=== PATIENT | male | born 1955 | race Caucasian/White ===

== ENCOUNTER 2020-09-16 12:23 | Emergency (ER) | payer SELFPAY ==
--- NOTE | 2020-09-16 12:25 | XR_ITS ---
WS: [id number] Exam: XR chest 1V portable [id number] Date/Time of Exam: 09/16/2020 12:25 PM Reason For Exam: chest pain No priors. Findings: The lungs are clear and fully expanded. Costophrenic angles are sharp. No infiltrates. Bronchovascula r relief appears normal. Cardiac silhouette is unremarkable. Bony elements are intact. XR/XR chest 1V portable [id number] IMPRESSION: Unremarkable chest radiograph.
--- NOTE | 2020-09-16 12:25 | ECG_ITS ---
[facility] Test Date: 2020-09-16 Pat Name: Kiersten Sibley Department: Room: Gender: Male Security Assistant: : 1955 Requested By: Diego Davison Order Number: [id number] Slick MD: Jocelyne Carrillo M.D. Measurements Intervals [place] Rate: 69 P: 51 MD: 152 QRS: 37 QRSD: 90 T: 58 QT: 360 QTc: 387 Interpretive Statements SINUS RHYTHM Compared to ECG 01/01/2018 11:02:17 ST (T wave) deviation no longer present Electronically Signed On 09-16-2020 15:40:42 CDT by Jocelyne Carrillo M.D. [id number] f
[2020-09-16 12:31] VITALS: BP 177/84; PULSE 68; RESP 15; TEMP 36.6; O2SAT 98; BMI 29.8
--- NOTE | 2020-09-16 12:56 | ED_ITS ---
HPI - Chest Pain General: Chief Complaint: Chest Pain Stated Complaint: CHEST PAINS Time Seen by Provider: 09/16/20 12:24 History of Present Illness: HPI narrative: 65-year-old male presents emergency room with complaint of chest pain. The chest pain for the last 3 days is worse today he does have a single sublingual nitro at home he took 3 with no relief. He states it began after he was throwing rocks at his neighbors chickens. He has not really been able to reproduce the pain he does have pain that seems musculoskeletal in nature in his right shoulder but states that is different he is not currently having any pain at the moment. He does not associate it with any exacerbating or relieving factors. MD complaint: chest pain Onset (ago): minute(s) Timing of current episode: episodic Onset: during rest Pain location: substernal Pain radiation: none Severity: mild Quality: aching and heaviness Relieving factors: nothing Exacerbating factors: nothing Associated symptoms: Deny abdominal pain, diaphoresis, dyspnea, fever(s), leg edema, nausea, palpitations, sense of impending doom, syncope or vomiting Treatment prior to arrival: none Review of Systems Const: Denies: fever(s) or diaphoresis ENMT: Denies: throat pain, ear or mastoid pain, nasal discharge or nasal congestion Card: Denies: palpitations or syncope Resp: Denies: dyspnea GI: Denies: abdominal pain, nausea or vomiting : Denies: flank pain, dysuria, urinary frequency or urinary urgency Skin/Breast: Denies: rash or pruritus [facility] ED PFSH: Medical History Coronary artery disease HTN (hypertension) Hyperlipidemia Social History Smoking and tobacco status: current every day smoker cigarettes Packs smoked per day: 1 Years cigarettes smoked: 10 Quit status (tobacco): not considering quitting Second hand smoke exposure: Yes Alcohol intake: never Physical Exam Const: COMMON NORMALS: no acute distress GENERAL APPEARANCE: cooperative and comfortable ORIENTATION/CONSCIOUSNESS: Yes awake, Yes oriented to person, Yes oriented to place and Yes oriented to time HENMT: COMMON NORMALS: normocephalic, atraumatic and hearing grossly normal bilaterally HEAD & SCALP: normocephalic and atraumatic Neck/C-Spine: COMMON NORMALS: no JVD Resp: COMMON NORMALS: normal respiratory effort, No retractions, No use of accessory muscles and clear to auscultation bilaterally AUSCULTATION: clear to auscultation bilaterally Cardio: COMMON NORMALS: no JVD, regular rate, regular rhythm and No murmurs present (Cardio) RATE: regular rate RHYTHM: regular rhythm GI: COMMON NORMALS: Soft to palpation and No hepatosplenomegaly present AUSCULTATION: Yes normoactive bowel sounds PALPATION: Yes Soft to palpation, No Tenderness to palpation present (GI), No Guarding due to palpation present (GI) and Yes No hepatosplenomegaly present Extremity: COMMON NORMALS: normal to inspection, capillary refill normal, no clubbing, cyanosis or edema, no calf tenderness and no pedal edema Neuro: SENSORIUM/ORIENTATION: Yes oriented to person, Yes oriented to place and Yes oriented to time Skin: COMMON NORMALS: no rashes or lesions noted GENERAL SKIN EXAM: no rashes or lesions noted Course Vital Signs: Vital signs: Vital Signs Temperature 97.9 F 09/16/20 12:31 Pulse Rate 62 09/16/20 17:51 Respiratory Rate 18 09/16/20 17:51 Blood Pressure 152/83 09/16/20 17:51 Pulse Oximetry 97 09/16/20 17:51 MDM - Chest Pain MDM Narrative: Medical decision making narrative: She has had this pain for 3 days intermittently despite this is troponin is negative and is EKG is unremarkable. Will discharge home however start on [id number] Pepcid or Prilosec continue aspirin start arrival isosorbide mononitrate for his blood pressure we will get him set up for a Lexiscan sestamibi stress test. Recommend he will hold off on any exertional activities until that is completed return if has further problems. Lab Data: Labs: Lab Results 09/16/20 09/16/20 09/16/20 Range/Units 13:20 13:20 13:20 WBC 7.7 (4.0-10.0) 10^3/ uL RBC 4.52 (4.1-5.3) 10^6/u L Hgb 13.5 (11.7-16.6) g/dL Hct 40.8 L (42.0-52.0) % MCV 90.3 (80-94) fL MCH 29.9 (28.0-34.0) pg MCHC 33.1 (30.0-36.0) g/dL RDW 13.5 (12.1-15.1) % Plt Count 302 (130-400) 10^3/c mm MPV 10.7 H (7.4-10.4) fL Neut % (Auto) 50.6 % Lymph % (Auto) 33.1 % [place] % (Auto) 9.5 % Eos % (Auto) 6.0 % Baso % (Auto) 0.7 % Neut # (Auto) 3.87 (1.8-7.7) 10^3/u L Lymph # (Auto) 2.5 (0.8-4.8) 10^3/u L [place] # (Auto) 0.7 (0.2-0.9) 10^3/u L Eos # (Auto) 0.5 (0.0-0.8) 10^3/u L Baso # (Auto) 0.1 (0.0-0.1) 10^3/u L Nucleated RBC % (a uto) 0 % Nucleated RBCs # 0.0 /100WBC Sodium 136 (136-145) mmol/L Potassium 4.4 (3.5-5.1) mmol/L Chloride 102 (98-107) mmol/L Carbon Dioxide 24 (22-29) mmol/L Anion Gap 14.4 (5-19) BUN 6 L (8-23) mg/dL Creatinine 0.5 L (0.7-1.2) mg/dL GFR Calculation 167.4 H (90-130) mL/min Glucose 72 (65-115) mg/dL Calculated Osmolal ity 278 L (285-295) mOsm/k g Calcium 9.0 (8.5-10.5) mg/dL Total Bilirubin 0.3 (0.15-1.2) mg/dL AST 14 (0-40) U/L ALT 11 (0-41) U/L Alkaline Phosphata se 91 (40-130) IU/L Troponin T Baselin e 6 (0-15) ng/L Troponin T 120 Min [place] (0-15) ng/L Delta Troponin T (0-10) ABS# Total Protein 6.1 L (6.6-8.7) g/dL Albumin 4.5 (3.5-5.2) g/dL Globulin 1.6 (1.3-4.6) g/dL 09/16/20 Range/Units 15:18 WBC (4.0-10.0) 10^3/ uL RBC (4.1-5.3) 10^6/u L Hgb (11.7-16.6) g/dL Hct (42.0-52.0) % MCV (80-94) fL MCH (28.0-34.0) pg MCHC (30.0-36.0) g/dL RDW (12.1-15.1) % Plt Count (130-400) 10^3/c mm MPV (7.4-10.4) fL Neut % (Auto) % Lymph % (Auto) % [place] % (Auto) % Eos % (Auto) % Baso % (Auto) % Neut # (Auto) (1.8-7.7) 10^3/u L Lymph # (Auto) (0.8-4.8) 10^3/u L [place] # (Auto) (0.2-0.9) 10^3/u L Eos # (Auto) (0.0-0.8) 10^3/u L Baso # (Auto) (0.0-0.1) 10^3/u L Nucleated RBC % (a uto) % Nucleated RBCs # /100WBC Sodium (136-145) mmol/L Potassium (3.5-5.1) mmol/L Chloride (98-107) mmol/L Carbon Dioxide (22-29) mmol/L Anion Gap (5-19) BUN (8-23) mg/dL Creatinine (0.7-1.2) mg/dL GFR Calculation (90-130) mL/min Glucose (65-115) mg/dL Calculated Osmolal ity (285-295) mOsm/k g Calcium (8.5-10.5) mg/dL Total Bilirubin (0.15-1.2) mg/dL AST (0-40) U/L ALT (0-41) U/L Alkaline Phosphata se (40-130) IU/L Troponin T Baselin e (0-15) ng/L Troponin T 120 Min [place] 6.00 (0-15) ng/L Delta Troponin T 0 (0-10) ABS# Total Protein (6.6-8.7) g/dL Albumin (3.5-5.2) g/dL Globulin (1.3-4.6) g/dL Discharge Plan Discharge Patient Disposition: Home Clinical Impression: Atypical chest pain, HTN (hypertension) Condition: Stable Prescriptions: New isosorbide mononitrate 30 mg tablet extended release 24 hr 30 mg PO DAILY Qty: 30 RF: 0 No Action aspirin [Ecotrin] 325 mg tablet,delayed release (DR/EC) 325 mg PO BEDTIME RF: 0 nitroglycerin 0.4 mg tablet, sublingual 0.4 mg sublingual Q5M PRN (Reason: chest pain) Qty: 25 RF: 1 paroxetine HCl 20 mg tablet 40 mg PO QAM RF: 0 Discharge Orders: Discharge ED (Routine); Ordered 09/16/20 Ordered By: Diego Chavez Discharge Diet: Cardiac Discharge Activity: Limit activity as instructed Patient Instructions: Opioid Safety Activity Restrictions/Additional Instructions: Management will call to make arrangements for a Lexiscan sestamibi stress test Coding Level of Care Code ED Senior Windows Engineer for Chg Fwd Exam Comprehensive
[2020-09-16 13:31] VITALS: BP 158/72; PULSE 64; RESP 20; O2SAT 96
[2020-09-16 13:31] LABS: Basophils # 0.1 10^3/uL (0.0-0.1); Basophils % 0.7 %; Eosinophils # 0.5 10^3/uL (0.0-0.8); Hematocrit 40.8 % (42.0-52.0); Hemoglobin 13.5 g/dL (11.7-16.6); Lymphocytes # 2.5 10^3/uL (0.8-4.8); Lymphocytes % 33.1 %; Mean Corpuscular HGB Conc 33.1 g/dL (30.0-36.0); Mean Corpuscular Hemoglobin 29.9 pg (28.0-34.0); Mean Corpuscular Volume 90.3 fL (80-94); Mean Platelet Volume 10.7 fL (7.4-10.4); Monocytes # 0.7 10^3/uL (0.2-0.9); Monocytes % 9.5 %; Neutrophils # 3.87 10^3/uL (1.8-7.7); Neutrophils % 50.6 %; Nucleated Red Blood Cells % 0 %; Platelet Count 302 10^3/cmm (130-400); Red Blood Count 4.52 10^6/uL (4.1-5.3); Red Cell Distribution Width 13.5 % (12.1-15.1); White Blood Count 7.7 10^3/uL (4.0-10.0)
[2020-09-16 13:55] LABS: Alanine Aminotransferase 11 U/L (0-41); Albumin Level 4.5 g/dL (3.5-5.2); Alkaline Phosphatase 91 IU/L (40-130); Anion Gap 14.4 (5-19); Aspartate Amino Transferase 14 U/L (0-40); Blood Urea Nitrogen 6 mg/dL (8-23); Carbon Dioxide 24 mmol/L (22-29); Chloride 102 mmol/L (98-107); Globulin 1.6 g/dL (1.3-4.6); Glomerular Filtration Rate 167.4 mL/min (90-130); Glucose 72 mg/dL (65-115); Osmolality Calculated 278 mOsm/kg (285-295); Potassium 4.4 mmol/L (3.5-5.1); Sodium 136 mmol/L (136-145); Total Bilirubin 0.3 mg/dL (0.15-1.2); Total Protein 6.1 g/dL (6.6-8.7)
[2020-09-16 13:56] LABS: Creatinine Clr Calc Pharmacy 151.6749
[2020-09-16 14:00] LABS: Troponin(5th) Baseline 6 ng/L (0-15)
--- NOTE | 2020-09-16 14:25 | ECG_ITS ---
[facility] Test Date: 2020-09-16 Pat Name: Kiersten Sibley Department: Room: Gender: Male Criminal Justice Lawyer: : 1955 Requested By: Diego Davison Order Number: [id number] Slick MD: Jocelyne Carrillo M.D. Measurements Intervals [place] Rate: 62 P: 46 [place]: 164 QRS: 27 QRSD: 87 T: 62 QT: 385 QTc: 392 Interpretive Statements SINUS RHYTHM Compared to ECG 09/16/2020 12:30:15 No significant changes Electronically Signed On 09-16-2020 18:32:48 CDT by Jocelyne Carrillo M.D. [id number]
[2020-09-16 15:23] VITALS: BP 152/83; PULSE 62; RESP 15; O2SAT 97
[2020-09-16 15:47] LABS: Troponin 5 2HR Delta 0 ABS# (0-10)
[2020-09-16 17:51] VITALS: BP 152/83; PULSE 62; RESP 18; O2SAT 97
== END 2020-09-16 17:53 | disposition home or self-care (01) ==
PROVIDERS: Emergency Provider Family Medicine
DX: R07.89 Other chest pain (principal); I10 Essential (primary) hypertension; Z79.82 Long term (current) use of aspirin; I25.10 Atherosclerotic heart disease of native coronary artery without angina pectoris; E78.5 Hyperlipidemia, unspecified; F17.210 Nicotine dependence, cigarettes, uncomplicated
CPT/HCPCS: 71045; 80053; 84484; 85025; 93005; 99284

== ENCOUNTER 2020-11-04 07:29 | Outpatient (CLI) | payer SELFPAY ==
[2020-11-04 07:55] VITALS: BMI 29.0
--- NOTE | 2020-11-04 07:58 | ECG_ITS ---
[facility] Test Date: 2020-11-04 Pat Name: Kiersten Sibley Department: Room: Gender: Male Air Pollution Inspector: : 1955 Requested By: Renita Ball Order Number: [id number] Slick MD: Jocelyne Carrillo M.D. Interpretive Statements NAME OF STUDY: LEXISCAN SESTAMIBI STRESS TEST INDICATION: Chest Pain PROCEDURE: At the baseline, the blood pressure was 184/80 mmHg, oxygen saturation 96% with a heart rate of 51 bpm. The electrocardiogram showed sinus bradycardia with nonspecific ST depression. The Lexiscan was infused over a period of 20 seconds. A total of 0.4 milligrams of Lexiscan was infused. The stress phase was continued for a total of 5 minutes. Heart rate at the end of the stress phase was 68 bpm, oxygen saturation 98% with a blood pressure of 179/68 mmHg. The EKG at the peak infusion revealed sinus rhythm with no significant ST-T wave changes. Study was terminated due to protocol completion. Sestamibi was injected 20 seconds after the Lexiscan infusion. Blood pressure at the end of the recovery phase was 172/71 mmHg, oxygen saturation 95% with a heart rate of 59 beats per minute. CONCLUSION: 1. No significant EKG changes with the LexiScan infusion 2. No LexiScan induced chest pain or cardiac arrhythmia. 3. Normal blood pressure and heart rate response. 4. Sestamibi/sestamibi perfusion scan pending; see separate report. Electronically Signed On 11-05-2020 12:20:12 CDT by Jocelyne Carrillo M.D. [email or web address] [email or web address]/[id number]
--- NOTE | 2020-11-04 07:59 | NMCV_ITS ---
NM julio perf SPECT r/s* [id number] Kiersten Sibley Age: 65 Gender: M : 1955 Exam Date: 11/04/2020 09:03 Ordering Phys: Renita Ball Technologist: MARQUIS Ibrahim Exam Location: [facility] Indications: CAD STRESS TEST Please see separate stress test report in [facility] for full findings IMAGE PROTOCOL Rest/Stress 1 Lexiscan Day Radiopharmaceutical Dose (mCi) Administration Site Administered by Rest: Tc-99m 10.9 IV Radha Baird, DIRECTOR BUSINESS INTELLIGENCE Sestamibi Stress:Tc-99m 32.8 IV Radha Baird, DIRECTOR BUSINESS INTELLIGENCE Sestamibi Rest: 04-Nov-2020 60 Discovery 630 Stress: 04-Nov-2020 30 Discovery 630 0.4mg Lexiscan. Images obtained in supine and prone position. SPECT RESULTS Technical Quality: Excellent Raw Data Analysis: Normal Image Corrections: No attenuation or motion correction applied Summed Stress Score: 2 Summed Rest Score: 1 Summed Difference Score: 2 PERFUSION FINDINGS Very small size perfusion abnormality of mild severity of mid inferolateral wall on rest images with subtle reversibility in apical lateral wall on supine stress images. There is improved tracer uptake on prone stress images. FUNCTIONAL RESULTS (calculated via Gated SPECT) Stress Image LV EF (%): 71 Stress EDV (mL):104 TID: 0.87 Stress ESV (mL):30 FUNCTIONAL FINDINGS: The left ventricle is normal in size. Transient Ischemia Dilatation of 0.87. There is normal left ventricular systolic function. The left ventricular ejection fraction is normal with a value of 71%. There is normal left ventricular wall thickening with no regional wall motion abnormality. Normal end-diastolic end-systolic volumes. IMPRESSIONS 1. Myocardial perfusion imaging is normal. Attenuation artifact noted in apical lateral wall. 2. Overall left ventricular systolic function is normal without regional wall motion abnormalities. 3. The left ventricular ejection fraction is normal with a value of 71%. 4. EKG portion of the study will be reported separately. 5. No coronary ischemia based on the study. Jocelyne Carrillo MD (Electronically Signed) Final Date: 05 November 2020 12:29 S
[2020-11-04] MEDS: regadenoson 0.4 Mg/5 ml Syringe IVP (10:17)
[2020-11-04 10:45] VITALS: BP 155/64; PULSE 83
== END 2020-11-04 07:30 | disposition home or self-care (01) ==
LOC: CDL 07:34
PROVIDERS: Visit Provider Nurse Practitioner Family
DX: R07.9 Chest pain, unspecified (principal)
CPT/HCPCS: 78452; 93017; A9500; J2785

== ENCOUNTER → 2021-04-26 09:36 | Outpatient (BNVA) | payer MEDICARE, SELFPAY | PROVIDERS: Visit Provider Nurse Practitioner Psychiatric/Mental Health | DX: F41.1 Generalized anxiety disorder (principal) | CPT/HCPCS: 99213 ==

== ENCOUNTER → 2021-05-18 12:26 | Outpatient (BNVA) | payer MEDICARE, SELFPAY | PROVIDERS: Visit Provider Social Worker | DX: F41.1 Generalized anxiety disorder (principal) | CPT/HCPCS: 90837; 90834 ==

== ENCOUNTER → 2021-06-29 08:25 | Outpatient (BNVA) | payer MEDICARE, SELFPAY | PROVIDERS: Visit Provider Social Worker | DX: F41.1 Generalized anxiety disorder (principal) | CPT/HCPCS: 90837; 90834 ==

== ENCOUNTER → 2021-07-19 10:46 | Outpatient (BNVA) | payer MEDICARE, SELFPAY | PROVIDERS: Visit Provider Nurse Practitioner Psychiatric/Mental Health | DX: F41.1 Generalized anxiety disorder (principal) | CPT/HCPCS: 99213; 99214 ==

== ENCOUNTER → 2021-08-01 12:13 | Outpatient (BNVA) | payer MEDICARE, SELFPAY | PROVIDERS: Visit Provider Social Worker | DX: F41.1 Generalized anxiety disorder (principal) | CPT/HCPCS: 90837; 90834 ==

== ENCOUNTER → 2021-08-22 12:15 | Outpatient (BNVA) | payer MEDICARE, SELFPAY | PROVIDERS: Visit Provider Social Worker | DX: F41.1 Generalized anxiety disorder (principal) | CPT/HCPCS: 90837; 90834 ==

== ENCOUNTER → 2021-09-16 11:20 | Outpatient (BNVA) | payer MEDICARE, SELFPAY | PROVIDERS: Visit Provider Social Worker | DX: F41.1 Generalized anxiety disorder (principal) | CPT/HCPCS: 90837; 90834 ==

== ENCOUNTER 2024-02-08 18:14 | Inpatient (IN) | payer MEDICARE, SELFPAY ==
[2024-02-08 18:23] VITALS: BP 135/74; PULSE 76; RESP 17; TEMP 36.5; O2SAT 98; BMI 27.4
--- NOTE | 2024-02-08 18:38 | ECG_ITS ---
[facility] Date: 2024-[facility]-08 Pat Name: Kiertsen Sibley Department: Room: Gender: Male Multimedia Project Manager: : 1955 Requested By: Abram Higgins Order Number: [id number] Reading MD: URIAH FRAIRE Measurements Intervals [place] Rate: 78 P: 62 NM: 162 QRS: 54 QRSD: 85 T: 56 QT: 359 QTc: 409 Interpretive Statements SINUS RHYTHM MODERATE ST DEPRESSION [0.05+ mV ST DEPRESSION] Compared to ECG 09/16/2020 14:55:01 ST (T wave) deviation now present Electronically Signed On 02-09-2024 18:08:40 CDT by URIAH FARIRE [id number] f
--- NOTE | 2024-02-08 18:38 | XRR_ITS ---
PROCEDURE INFORMATION: Exam: XR Chest Exam date and time: 02/08/2024 6:55 PM Age: 68 years old Clinical indication: Pain; Chest pressure; Additional info: Chest pain TECHNIQUE: Imaging protocol: Radiologic exam of the chest. Views: 1 view. COMPARISON: CR XR chest 1V portable [id number] 09/16/2020 12:36 PM FINDINGS: Lungs: Stable mild interstitial prominence. No pulmonary consolidation. Pleural spaces: No pleural effusion or pneumothorax. Heart/Mediastinum: Heart size is within normal limits. Bones/joints: No acute osseous abnormalities are seen. XR/XR chest 1V portable [id number] IMPRESSION: No acute cardiopulmonary disease.
[2024-02-08 18:49] LABS: Basophils # 0.1 10^3/uL (0.0-0.1); Basophils % 0.7 %; Eosinophils # 0.7 10^3/uL (0.0-0.8); Eosinophils % 5.4 %; Hematocrit 43.9 % (37-53); Lymphocytes % 32.2 %; Mean Corpuscular HGB Conc 34.2 g/dL (30-55); Mean Corpuscular Hemoglobin 31.8 pg (27-33); Mean Platelet Volume 11.5 fL (7.4-10.4); Monocytes % 7.8 %; Neutrophils % 53.7 %; Nucleated Red Blood Cells % 0 %; Platelet Count 300 10^3/cmm (157-399); Red Blood Count 4.72 10^6/uL (3.85-5.65); Red Cell Distribution Width 13.5 % (12.1-15.1); White Blood Count 12.49 10^3/uL (3.29-11.43)
[2024-02-08] MEDS: ondansetron 2 mg/ML SDV 2 mL 4 MG IVP (19:03)
[2024-02-08] MEDS: morphine 4 mg/mL SDV 1 mL IVP (19:03)
[2024-02-08 19:06] LABS: INR 0.87 (0.8-1.2); Partial Thromboplastin Time 23.6 SECONDS (23.9-36.7)
[2024-02-08 19:07] LABS: Troponin(5th) Baseline 12 ng/L (0-15)
[2024-02-08 19:09] LABS: Anion Gap 16.8 (5-19); Blood Urea Nitrogen 10 mg/dL (8-23); Calcium 9.5 mg/dL (8.5-10.5); Carbon Dioxide 23 mmol/L (22-29); Chloride 98 mmol/L (98-107); Creatinine Clr Calc Pharmacy 77.8716; Glomerular Filtration Rate 84.2 mL/min (90-130); Glucose 78 mg/dL (65-115); Osmolality Calculated 276 mOsm/kg (285-295); Potassium 3.8 mmol/L (3.5-5.1); Sodium 134 mmol/L (136-145)
[2024-02-08 19:12] LABS: NT Pro B Type Natriuretic Pept 125 pg/mL (0-125)
[2024-02-08] MEDS: lidocaine 2% viscous 15 ML, aluminum-mag hydrox-simethicon 30 ML, sucralfate oral liq 1 GM PO (19:43)
--- NOTE | 2024-02-08 20:38 | ECG_ITS ---
[facility] Test Date: 2024-02-08 Pat Name: Kiersten Sibley Department: Room: Gender: Male Insurance Follow Up Rep: : 1955 Requested By: Abram Higgins Order Number: [id number] Reading MD: URIAH FRAIRE Measurements Intervals [place] Rate: 62 P: 71 ND: 170 QRS: 72 QRSD: 85 T: 58 QT: 403 QTc: 411 Interpretive Statements SINUS RHYTHM MODERATE ST DEPRESSION [0.05+ mV ST DEPRESSION] Compared to ECG 02/08/2024 18:19:35 No significant changes Electronically Signed On 02-09-2024 18:14:49 CDT by URIAH FRAIRE [id number]
[2024-02-08 20:41] VITALS: BP 140/72; PULSE 61; RESP 16; O2SAT 96
[2024-02-08 20:49] LABS: Troponin 5 2HR 13.73 ng/L (0-15); Troponin 5 2HR Delta 1.73 ABS# (0-10)
--- NOTE | 2024-02-08 21:11 | ED_ITS ---
HPI - Chest Pain 2 General: Chief Complaint: Chest Pain Stated Complaint: CP Time Seen by Provider: 02/08/24 18:18 History of Present Illness: This patient is a 68-year-old white male who presents to the emergency department with chest pain. Patient states he was out cutting wood today and then started gathering the wood and developed chest pressure. This came on 1 hour prior to arrival here. He did take 1 sublingual nitroglycerin tablet with no relief. He was brought in by EMS. They did give him 2 sublingual nitroglycerin tablets which did help with his pain. He continues to have some moderate pain he rates a 5 on a scale of 1-10. Describes it as a pressure sensation. Has some mild shortness of breath. No nausea or vomiting. No radiation of the pain. No diaphoresis. He does have a history of coronary artery disease and had 1 stent placed in 2001. Patient was also given aspirin and route. Patient does smoke. Related Data Home Medications Medication Instructions Recorded Confirmed aspirin 325 mg tablet,delayed 325 mg PO BEDTIME 05/27/19 12/14/22 release (Ecotrin) Previous Rx's Medication Instructions Recorded nitroglycerin 0.4 mg sublingual 0.4 mg sublingual Q5M PRN chest 07/19/21 tablet pain #25 tabs paroxetine HCl 20 mg tablet 40 mg (2 x 20 mg) PO QAM #60 tabs 04/05/23 Allergies Allergy/AdvReac Type Severity Reaction Status Date / Time No Known Allergies Allergy Verified 12/14/22 11:19 Review of Systems 2 General: Reports: 10 or more systems reviewed and unremarkable except in HPI and below Card: Reports: chest pain [facility] ED 2 PFSH: Medical History (Updated 01/18/24 @ 08:17 by Amy Andre) Coronary artery disease Hyperlipidemia HTN (hypertension) Social History Smoking and tobacco/nicotine status: current every day tobacco/nicotine user cigarettes Packs smoked per day: 1 Years cigarettes smoked: 10 Second hand smoke exposure: Yes Alcohol intake: never Substance/Drug Use: never Physical Exam 2 Const: COMMON NORMALS: no acute distress, patient oriented x3 and no limitations GENERAL APPEARANCE: cooperative and comfortable HENMT: COMMON NORMALS: normocephalic, atraumatic, Normal nasal mucous membranes and turbinates present, moist oral mucous membranes and oropharynx normal HEAD & SCALP: normal to inspection, normocephalic and atraumatic F SCOTTY & SINUS: normal facial exam NOSE: Normal nasal mucous membranes and turbinates present Eye: COMMON NORMALS: Equal, round and reactive pupils present, EOMs intact bilaterally and conjunctivae normal GENERAL EYE: appearance normal, both eyes and all related structures CONJUNCTIVA: Yes conjunctivae normal PUPIL: Yes Equal, round and reactive pupils present Neck/C-Spine: COMMON NORMALS: supple and no JVD Chest: COMMONS NORMALS: normal inspection of the chest Resp: COMMON NORMALS: normal respiratory effort and clear to auscultation bilaterally AUSCULTATION: clear to auscultation bilaterally Cardio: COMMON NORMALS: no JVD, regular rate, regular rhythm, No gallops present (Cardio), No murmurs present (Cardio) and No rub (Cardio) RATE: r egular rate RHYTHM: regular rhythm GI: COMMON NORMALS: Normal to inspection, nondistended, normoactive bowel sounds present, Soft to palpation and non-tender AUSCULTATION: Yes normoactive bowel sounds PALPATION: Yes Soft to palpation : COMMON NORMALS: Yes no CVA tenderness BLADDER/KIDNEY EXAM: Yes no CVA tenderness Back/Pelvis: COMMON NORMALS: no CVA tenderness and thoracic and lumbar spine normal to inspection Extremity: COMMON NORMALS: normal to inspection Neuro: COMMON NORMALS: patient oriented x3 and CN's II-XII intact bilaterally Psych: COMMON NORMALS: mental status grossly normal, Normal thought process present and cooperative THOUGHT PROCESS: Normal thought process present Skin: COMMON NORMALS: no rashes or lesions noted, turgor normal and no jaundice GENERAL SKIN EXAM: no rashes or lesions noted and turgor normal Course 2 Vital Signs: Vital signs: Vital Signs Temperature 97.7 F 02/08/24 18:23 Pulse Rate 61 02/08/24 20:41 Respiratory Rate 16 02/08/24 20:41 Blood Pressure 140/72 02/08/24 20:41 Pulse Oximetry 96 02/08/24 20:41 Oxygen Delivery Me thod Room Air 02/08/24 20:41 MDM - Chest Pain Medical Decision Making Patient was given 4 mg of morphine in the emergency department along with 4 mg of Zofran. Pain diminished to a level of 1 or 2. We also tried a GI cocktail which she states may have helped a little. Continues to have a very low level of chest pressure. His EKG revealed normal sinus rhythm with no ST segment abnormalities. His chest x-ray was normal. CBC reveals white blood cell count of 12.5. BMP was normal. BNP was 125. Baseline troponin was 12 with a 2-hour level of 13. Coags were normal. I discussed the case with patient's brine maker Dr. Davenport. He does recommend that we admit the patient to the hospitalist service and he will consult. I then discussed the case with Dr. Mckeon, hospitalist. He did accept the patient. He would like the patient admitted to the cardiac stepdown unit. Patient will be sent to the floor shortly. He is stable. Lab Data 02/08/24 18:15 02/08/24 18:15 Radiology Impressions Chest X-Ray 02/08/24 18:38 IMPRESSION: No acute cardiopulmonary disease. Laboratory Results WBC 12.49 10^3/uL (3.29-11.43) H 02/08/24 18:15 RBC 4.72 10^6/uL (3.85-5.65) 02/08/24 18:15 Hgb 15.00 g/dL (11.27-16.99) 02/08/24 18:15 Hct 43.9 % (37-53) 02/08/24 18:15 MCV 93.0 fl (82-101) 02/08/24 18:15 MCH 31.8 pg (27-33) 02/08/24 18:15 MCHC 34.2 g/dL (30-55) 02/08/24 18:15 RDW 13.5 % (12.1-15.1) 02/08/24 18:15 Plt Count 300 10^3/cmm (157-399) 02/08/24 18:15 MPV 11.5 fL (7.4-10.4) H 02/08/24 18:15 Neut % (Auto) 53.7 % 02/08/24 18:15 Lymph % (Auto) 32.2 % 02/08/24 18:15 [place] % (Auto) 7.8 % 02/08/24 18:15 Eos % (Auto) 5.4 % 02/08/24 18:15 Baso % (Auto) 0.7 % 02/08/24 18:15 Neut # (Auto) 6.70 10^3/uL (1.8-7.7) 02/08/24 18:15 Lymph # (Auto) 4.0 10^3/uL (0.8-4.8) 02/08/24 18:15 [place] # (Auto) 1.0 10^3/uL (0.2-0.9) H 02/08/24 18:15 Eos # (Auto) 0.7 10^3/uL (0.0-0.8) 02/08/24 18:15 Baso # (Auto) 0.1 10^3/uL (0.0-0.1) 02/08/24 18:15 Nucleated RBC % (auto) 0 % 02/08/24 18:15 Nucleated RBCs # 0.0 /100WBC 02/08/24 18:15 PT 12.10 SECONDS (12.1-14.9) 02/08/24 18:51 INR 0.87 (0.8-1.2) 02/08/24 18:51 APTT 23.6 SECONDS (23.9-36.7) L 02/08/24 18:51 Sodium 134 mmol/L (136-145) L 02/08/24 18:15 Potassium 3.8 mmol/L (3.5-5.1) 02/08/24 18:15 Chloride 98 mmol/L (98-107) 02/08/24 18:15 Carbon Dioxide 23 mmol/L (22-29) 02/08/24 18:15 Anion Gap 16.8 (5-19) 02/08/24 18:15 BUN 10 mg/dL (8-23) 02/08/24 18:15 Creatinine 0.9 mg/dL (0.7-1.2) 02/08/24 18:15 GFR Calculation 84.2 mL/min (90-130) L 02/08/24 18:15 Glucose 78 mg/dL (65-115) 02/08/24 18:15 Calculated Osmolality 276 mOsm/kg (285-295) L 02/08/24 18:15 Calcium 9.5 mg/dL (8.5-10.5) 02/08/24 18:15 Troponin T Baseline 12 ng/L (0-15) 02/08/24 18:15 Troponin T 120 Minute 13.73 ng/L (0-15) 02/08/24 20:18 Delta Troponin T 1.73 ABS# (0-10) 02/08/24 20:18 NT-Pro-B Natriuret Pep 125 pg/mL (0-125) 02/08/24 18:15 All radiology interpretation(s) finalized by discharge Discharge Plan Discharge Condition: Stable Prescriptions: No Action aspirin [Ecotrin] 325 mg tablet,delayed release (DR/EC) 325 mg PO BEDTIME nitroglycerin 0.4 mg tablet, sublingual 0.4 mg sublingual Q5M PRN (Reason: chest pain) Qty: 25 1RF Rx Instructions: do not exceed 3 doses per episode paroxetine HCl 20 mg tablet 40 mg PO QAM Qty: 60 1RF Rx Instructions: Take two tablets by mouth every morning Coding Level of Care Code ED Store Facility Technician for Ayleen Leonardo
[2024-02-08] MEDS: heparin 5,000 unit/mL INJ 1 mL 4000 UNIT IVP (21:58)
[2024-02-08] MEDS: heparin drip 25,000 UNIT/500 ML PREMIX 21.59 UNIT IV (22:27)
--- NOTE | 2024-02-08 22:36 | PC.NURSE ---
Report called to Renetta CHARLES in CSU. All questions/concerns addressed at this time.
[2024-02-08 22:37] VITALS: BP 130/64; PULSE 56; RESP 12; O2SAT 99
[2024-02-08 23:24] VITALS: BP 169/87; PULSE 79; O2SAT 98
[2024-02-08 23:28] VITALS: BMI 24.1
[2024-02-09] VITALS (17 sets, daily range): BP systolic 116–146; BP diastolic 50–64; PULSE 51–61; RESP 12–20; TEMP 36.6–36.9; O2SAT 92–97; BMI 27.1
[2024-02-09 00:53] LABS: Troponin 5 6HR 12.72 ng/L (0-15); Troponin 5 6HR Delta 0.72 ng/L (0-12)
--- NOTE | 2024-02-09 01:27 | USCV_ITS ---
Kiersten Sibley Age: 68 Gender: M : 1955 Exam Date: 02/09/2024 08:26 Ordering Phys: Mamta Barboza MD Technologist: Jose Moy Exam Location: [facility] [place] Indication: angina BP: 135 / 64 HR: 52 Rhythm: Sinus Technical Quality: Adequate MEASUREMENTS (Male / Female) Normal Values 2D ECHO LV Diastolic Diameter PLAX 4.5 cm 4.2 - 5.9 / 3.9 - 5.3 cm IVS Diastolic Thickness 1.0 cm 0.6 - 1.0 / 0.6 - 0.9 cm IVS Systolic Thickness 1.5 cm LVPW Diastolic Thickness 1.4 cm 0.6 - 1.0 / 0.6 - 0.9 cm LVPW Systolic Thickness 2.2 cm LVOT Diameter 2.0 cm LV Ejection Fraction 2D Teich 63.7 % LV Ejection Fraction MOD 4C 67.9 % LV Ejection Fraction MOD 2C 75.3 % LV Ejection Fraction 2C AL 75.8 % LA Diameter 3.5 cm RA Systolic Volume 4C AL 40.1 ml RA Systolic Volume 4C MOD 41.9 ml LA Sys Volume AL 37.8 cm cubed LA Sys Volume Index AL 19.8 cm cubed/m squared Aorta at Sinotubular Diameter 2.1 cm IVC Diameter 1.8 cm M-MODE LA Ao Ratio MM 1.2 AV Cusp Separation MM 1.6 cm DOPPLER AV Peak Velocity 201.0 cm/s LVOT Peak Velocity 125.0 cm/s AV Area Cont Eq vti 2.1 cm squared AV Area Cont Eq pk 2.0 cm squared MV Peak Velocity 76.0 cm/s MV Area PHT 3.5 cm squared Mitral E to A Ratio 0.9 TV Peak Velocity 356.3 cm/s TR Peak Velocity 385.0 cm/s TR Peak Gradient 59.3 mmHg TR Mean Velocity 304.0 cm/s TR Mean Gradient 40.2 mmHg TR Velocity Time Integral 112.4 cm PV Peak Velocity 90.0 cm/s RV Ejection Time 0.4 s FINDINGS Left Ventricle Normal left ventricular size, systolic function and wall thickness, with no regional wall motion abnormalities. Left ventricular ejection fraction is estimated at 60 %. Grade I/IV diastolic dysfunction (abnormal relaxation filling pattern), normal to mildly elevated filling pressures. Right Ventricle The right ventricle is normal in size and function. Right Atrium The right atrium is normal in size. Left Atrium Mildly increased left atrial size. Mitral Valve Structurally normal mitral valve without significant stenosis or prolapse. There is no mitral regurgitation. Aortic Valve Moderate aortic valve calcification. Mild aortic valve stenosis, mean gradient 10.4 mmHg, MAXIME 2.1 cm squared.trace aortic valve regurgitation. Tricuspid Valve Structurally normal tricuspid valve without significant stenosis or regurgitation. Pulmonary artery systolic pressure is normal. Pulmonic Valve Structurally normal pulmonic valve without significant stenosis. There is no pulmonic regurgitation. Pericardium Normal pericardium without effusion. Aorta Normal ascending aorta dimension. IVC The inferior vena cava appears normal. CONCLUSIONS CONCLUSIONS: 1. Normal left ventricular size, systolic function and wall thickness, with no regional wall motion abnormalities. Left ventricular ejection fraction is estimated at 60%. Normal left ventricular wall thickness. Grade I/IV diastolic dysfunction (abnormal relaxation filling pattern), normal to mildly elevated filling pressures. 2. No significant chamber abnormalities. 3. Moderate aortic valve calcification. Mild aortic valve stenosis, mean gradient 10.4 mmHg, MAXIME 2.1 cm squared.trace aortic valve regurgitation. 4. There is no pericardial effusion. 5. There are no intracardiac masses. 6. Right atrial pressure is around 5 mm of mercury. Tari Davenport MD (Electronically Signed) Final Date: 09 February 2024 11:54 S
--- NOTE | 2024-02-09 01:28 | P.HP_ITS ---
Providers/Chief Complaint 2 Admitting Physician: Jimmy Mckeon MD Chief Complaint: CP History of Present Illness Kiersten Sibley is a 68 year old male with a past medical history of coronary artery disease, status post stenting in 2001, hyperlipidemia who is presenting to the emergency room today with chest pain. Patient states that he was out collecting somewhat that he had chopped earlier and while trying to load the wood in his car he started to experience chest pain. It was located in the center of the chest, 10 out of 10. Made him double over in pain. One of his passing neighbors noticed the patient to be in pain, gave him nitroglycerin however this did not appear to relieve his symptoms. EMS was called and he got 2 further doses of nitro which eventually did not lead to some improvement in pain. At this present time he continues to describe a vague central chest pressure which is currently better. At the time of his symptoms he felt short of breath. There was no nausea or vomiting. His EKG showed some mild ST depression in leads II, V4, V5, V6. These appear to be new compared to 2020. These have not progressed on serial EKGs. Troponin series with baseline troponin at 12--> 13--> 12 without significant delta is at 2 or 6 hours. Denies any recent dyspnea on exertion. States that symptoms today were out of the ordinary. Review of past records from cardiology dating back to 2021 do show that patient had complained of intermittent chest discomfort for which she was prescribed nitro. Last stress test from October 2020 showed normal myocardial perfusion imaging. There was attenuation artifact in the apical lateral wall. LVEF was estimated to be 71% on stress test. Unable to find an echocardiogram on file. He is noted to have sinus bradycardia with heart rate of 53/min at the time of this assessment. He is not a known hypertensive. Review of Systems 2 General: Reports: 10 or more systems reviewed and unremarkable except in HPI and below Const: Denies: fever(s), chills or body aches Eyes: Denies: change in vision, blurry vision or photophobia ENMT: Reports: hoarseness; Denies: throat pain, enlarged tonsils, odynophagia or nasal congestion Card: Denies: chest pain, palpitations, irregular heart rhythm, edema, swelling of feet/ankles, lightheadedness, pre-syncope, dyspnea on exertion or orthopnea Resp: Denies: dyspnea, productive cough, non-productive cough, wheezing, stridor, pain on inspiration, change in phlegm color, hemoptysis or chest congestion GI: Denies: abdominal pain, nausea, vomiting, hematemesis, coffee ground emesis, dysphagia, heartburn, diarrhea, constipation, GI cramping, change in stool character, hematochezia or melena : Denies: flank pain, dysuria, urinary frequency, urinary urgency, urinary hesitancy or hematuria Musc: Denies: neck pain, back pain, extremity pain, joint swelling, joint warmth or deformity Neuro: Denies: headache(s), numbness in extremities, weakness in extremities, sensory changes, difficulty walking, frequent falls, dizziness, vertigo, behavioral changes, Slurred speech present or seizure-like activity Psych: Denies: anxiety, depression, suicidal ideation or homicidal ideation Endo: Denies: polyuria, polydipsia, tired all the time, cold intolerance or hot flashes Ernie/Lymph: Denies: easy bruising or easy bleeding Medications/Allergies Home Medications Medication Instructions Recorded Confirmed Last Taken Type aspirin 325 mg tablet,delayed 325 mg PO BEDTIME 05/27/19 02/09/24 09/15/20 History release (Ecotrin) nitroglycerin 0.4 mg sublingual 0.4 mg sublingual Q5M PRN chest 07/19/21 02/09/24 02/08/24 Rx tablet pain #25 tabs Allergies Allergy/AdvReac Type Severity Reaction Status Date / Time No Known Allergies Allergy Verified 12/14/22 11:19 PFSH Acute 2 PFSH: Medical History Coronary artery disease Hyperlipidemia HTN (hypertension) Social History Smoking and tobacco/nicotine status: current every day tobacco/nicotine user cigarettes Packs smoked per day: 1 Years cigarettes smoked: 10 Second hand smoke exposure: Yes Alcohol intake: never Substance/Drug Use: never Vitals/I&O/Wt Last Vital Signs Temp 97.7 F 02/08/24 18:23 Pulse 55 L 02/09/24 00:12 Resp 12 02/08/24 22:37 BP 169/87 02/08/24 23:24 Pulse Ox 98 02/08/24 23:24 O2 Del Method Room Air 02/08/24 23:28 02/08/24 02/08/24 02/09/24 14:59 22:59 06:59 Output Total 625 / 625 Balance -625 / -625 Weight last 48 hrs Weight 67.903 kg Weight 77.111 kg Physical Exam 2 Narrative: General: No acute distress, AO x3 HEENT: PERRLA, pupils bilaterally equal and reactive, pallors not present Chest: Normal vesicular breath sounds, no added sounds, equal good air entry bilaterally CVS: S1-S2 regular, no murmurs, no tachycardia, no gallops, no rubs Abdomen: Soft, nontender, no organomegaly, bowel sounds present Neuro: No focal deficits, no facial deformity, AO x3, power 5/5 in all limbs Data 02/08/24 18:15 02/08/24 18:15 Other data: Radiology Impressions Chest X-Ray 02/08/24 18:38 IMPRESSION: No acute cardiopulmonary disease. Laboratory Results WBC 12.49 10^3/uL (3.29-11.43) H 02/08/24 18:15 RBC 4.72 10^6/uL (3.85-5.65) 02/08/24 18:15 Hgb 15.00 g/dL (11.27-16.99) 02/08/24 18:15 Hct 43.9 % (37-53) 02/08/24 18:15 MCV 93.0 fl (82-101) 02/08/24 18:15 MCH 31.8 pg (27-33) 02/08/24 18:15 MCHC 34.2 g/dL (30-55) 02/08/24 18:15 RDW 13.5 % (12.1-15.1) 02/08/24 18:15 Plt Count 300 10^3/cmm (157-399) 02/08/24 18:15 MPV 11.5 fL (7.4-10.4) H 02/08/24 18:15 Neut % (Auto) 53.7 % 02/08/24 18:15 Lymph % (Auto) 32.2 % 02/08/24 18:15 [place] % (Auto) 7.8 % 02/08/24 18:15 Eos % (Auto) 5.4 % 02/08/24 18:15 Baso % (Auto) 0.7 % 02/08/24 18:15 Neut # (Auto) 6.70 10^3/uL (1.8-7.7) 02/08/24 18:15 Lymph # (Auto) 4.0 10^3/uL (0.8-4.8) 02/08/24 18:15 [place] # (Auto) 1.0 10^3/uL (0.2-0.9) H 02/08/24 18:15 Eos # (Auto) 0.7 10^3/uL (0.0-0.8) 02/08/24 18:15 Baso # (Auto) 0.1 10^3/uL (0.0-0.1) 02/08/24 18:15 Nucleated RBC % (auto) 0 % 02/08/24 18:15 Nucleated RBCs # 0.0 /100WBC 02/08/24 18:15 PT 12.10 SECONDS (12.1-14.9) 02/08/24 18:51 INR 0.87 (0.8-1.2) 02/08/24 18:51 APTT 23.6 SECONDS (23.9-36.7) L 02/08/24 18:51 Sodium 134 mmol/L (136-145) L 02/08/24 18:15 Potassium 3.8 mmol/L (3.5-5.1) 02/08/24 18:15 Chloride 98 mmol/L (98-107) 02/08/24 18:15 Carbon Dioxide 23 mmol/L (22-29) 02/08/24 18:15 Anion Gap 16.8 (5-19) 02/08/24 18:15 BUN 10 mg/dL (8-23) 02/08/24 18:15 Creatinine 0.9 mg/dL (0.7-1.2) 02/08/24 18:15 GFR Calculation 84.2 mL/min (90-130) L 02/08/24 18:15 Glucose 78 mg/dL (65-115) 02/08/24 18:15 Estimat Average Glucose 105 02/08/24 18:15 Hemoglobin A1c 5.3 % (4.0-6.0) 10/18/24 18:15 Calculated Osmolality 276 mOsm/kg (285-295) L 02/08/24 18:15 Calcium 9.5 mg/dL (8.5-10.5) 02/08/24 18:15 Troponin T Baseline 12 ng/L (0-15) 02/08/24 18:15 Troponin T 120 Minute 13.73 ng/L (0-15) 02/08/24 20:18 Delta Troponin T 1.73 ABS# (0-10) 02/08/24 20:18 Troponin T Hi Sens 6Hr 12.72 ng/L (0-15) 02/09/24 00:24 Troponin T Hi Sens 6Hr Delta 0.72 ng/L (0-12) 02/09/24 00:24 NT-Pro-B Natriuret Pep 125 pg/mL (0-125) 02/08/24 18:15 A&P Assessment and plan (1) Chest pain: Patient presenting with history as above. Chest pain on exertion today. Has some relief now after 3 doses of nitro but states there is mild chest discomfort still persisting EKG showing some mild ST depression which is new compared to 2020, unknown chronicity of these changes. No progression noted on serial EKGs tonight. Troponin series 12-->13-->12 without significant delta. Clinical symptoms may be related to unstable angina. Given his known risk factors and past history of coronary artery disease,Cardiology consult was requested from the emergency room. He has received 325 mg of aspirin via EMS, 3 sublingual nitros which have partially helped with the pain, and is currently on a heparin drip as started from the emergency room. Differentials at this time include possible PE. Will check a D-dimer for screening. If elevated will proceed with CTA of the chest. No complaints of abdominal pain nausea vomiting or diarrhea. Check lipid panel and HbA1c for risk ratification. Chart notes a past history of hyperlipidemia, however current medications listed on his home medication list. Further orders dependent on results of pending tests, cardiology assessment Plan DVT prophylaxis: Currently on heparin gtt., low risk Full code Attestations 2 Medical Necessity Statement*: Less than 2 midnight stay is anticipated at this time Coding Level of Care Code Acute Code for Chg Fwd Moderate MDM includes number and complexity of problems actively addressed during encounter, amount and/or complexity of data reviewed/ordered and described risk of complication, morbidity or mortality of management as documented Diagnoses Chest pain R07.9
[2024-02-09 02:00] LABS: D Dimer 0.92 ug/mLFEU (0-0.59)
--- NOTE | 2024-02-09 02:13 | CTR_ITS ---
PROCEDURE INFORMATION: Exam: CTA Chest With Contrast Exam date and time: 02/09/2024 3:16 AM Age: 68 years old Clinical indication: Pain and abnormal findings; Abnormal diagnostic tests; Elevated d-dimer; Shortness of breath; Chest pressure; Prior surgery; Surgery date: 6+ months; Surgery type: Coronary stents; Patient HX: Cp with SOB. Dimer 0.92. ; Additional info: Evaluate for pe TECHNIQUE: Imaging protocol: Computed tomographic angiography of the chest with contrast. Exam focused on the arteries. 3D rendering (Not supervised by radiologist): MIP and/or 3D reconstructed images were created by the technologist. Radiation optimization: All CT scans at this facility use at least one of these dose optimization techniques: automated exposure control; mA and/or kV adjustment per patient size (includes targeted exams where dose is matched to clinical indication); or iterative reconstruction. Contrast material: OMNI 350; Contrast volume: 70 ml; Contrast route: INTRAVENOUS (IV); COMPARISON: CR (CHEST, ) 02/08/2024 6:55 PM RADIATION DOSE METRICS: Total DLP (mGy-cm): 330.38 FINDINGS: Pulmonary arteries: Normal. No pulmonary emboli. Aorta: Moderate atherosclerotic changes of the aorta. Lungs: Right lower lobe calcified granuloma. Bibasilar linear atelectasis. Right hilar calcified lymph nodes. Pleural spaces: Unremarkable. No pneumothorax. No pleural effusion. Heart: Unremarkable. No cardiomegaly. No pericardial effusion. Lymph nodes: Mediastinal lymphadenopathy measuring up to 1.5 cm in felisa station 4R. Spleen: Splenic granulomas. Bones/joints: Unremarkable. No acute fracture. Soft tissues: Unremarkable. CT/CT angio chest PE protcl [id number] IMPRESSION: No pulmonary embolus.
[2024-02-09 02:18] LABS: Estmated Average Glucose 105; Hemoglobin A1C 5.3 % (4.0-6.0)
[2024-02-09 02:20] LABS: Chol HDL Ratio 9.21 mg/dL (1.0-5.00); Cholesterol 433 mg/dL (0-200); HDL Cholesterol 47 mg/dL (60-100); Thyroid Stimulating Hormone 1.19 uIU/mL (0.27-4.20); Triglycerides 480 mg/dL (0-150)
[2024-02-09 02:40] LABS: LDL Cholesterol Direct 352 mg/dL (0-100)
[2024-02-09] MEDS: iohexol 350 mg/mL 500 mL Btl (per mL) IV (03:31)
[2024-02-09 03:49] LABS: Lipase 27 U/L (13-60)
--- NOTE | 2024-02-09 04:18 | ECG_ITS ---
[facility] Date: 2024-02-09 Pat Name: Kiersten Sibley Department: Room: 106 Gender: Male Gore Inserter: : 1955 Requested By: Abram Higgins Order Number: [id number] Reading MD: URIAH FRAIRE Measurements Intervals [place] Rate: 50 P: 59 MD: 171 QRS: 30 QRSD: 88 T: 33 QT: 434 QTc: 399 Interpretive Statements SINUS BRADYCARDIA Compared to ECG 02/08/2024 20:59:26 Sinus rhythm no longer present ST (T wave) deviation no longer present Electronically Signed On 02-09-2024 18:14:28 CDT by URIAH FRAIRE [email or web address]
[2024-02-09 05:28] LABS: Partial Thromboplastin Time 146.5 SECONDS (23.9-36.7)
[2024-02-09] MEDS: enoxaparin 40 mg/0.4 mL Syringe SUBCUT ×2 (07:42→10:16)
[2024-02-09] MEDS: aspirin 81 mg EC Tablet PO (09:03)
[2024-02-09] MEDS: pantoprazole DR 40 mg Tablet PO (09:03)
--- NOTE | 2024-02-09 11:14 | PM.CONSULT ---
Providers/Reason For Consult Consulting Physician/Specialty*: Tari Davenport MD Reason for Consult*: Chest pain Requesting Physician: Dr. Gillespie Attending Physician: Nichole Mazariegos MD History of Present Illness History of Present Illness Kiersten Sibley is a 68 year old male past medical history significant for coronary artery disease history of prior stent in 2001 hypertension uncontrolled hyperlipidemia including hypertriglyceridemia and very high LDL along with continues tobacco abuse presented with exertional chest pain in the similar way when he had his stent, he was ruled out for acute coronary syndrome, twelve-lead EKG showed sinus rhythm otherwise no significant ST changes. Patient is high risk for acute coronary syndrome given history of prior coronary artery disease uncontrolled hyperlipidemia continious tobacco abuse and worsening of shortness of breath with chest pain on [id number] exertion going on for the last few weeks, it is suggestive of escalating unstable angina therefore we will proceed with left heart catheterization. Today patient was already given Lovenox we will wait till tomorrow morning for the left heart cath. He also was noted to be very bradycardic therefore we will avoid beta-meli Medications/Allergies Home Medications Medication Instructions Recorded Confirmed Last Taken Type aspirin 325 mg tablet,delayed 325 mg PO BEDTIME 05/27/19 02/09/24 09/15/20 History release (Ecotrin) nitroglycerin 0.4 mg sublingual 0.4 mg sublingual Q5M PRN chest 07/19/21 02/09/24 02/08/24 Rx tablet pain #25 tabs Allergies Allergy/AdvReac Type Severity Reaction Status Date / Time No Known Allergies Allergy Verified 12/14/22 11:19 Current Medications Generic Name Dose Route Start Last Admin Trade Name Freq PRN Reason Stop Dose Admin Aspirin 81 mg 02/09/24 09:00 02/09/24 09:03 Aspirin 81 Mg Ec Tablet PO 81 mg DAILY FAINA Administration Pantoprazole Sodium 40 mg 02/09/24 09:00 02/09/24 09:[address] 40 Mg Tablet PO 40 mg DAILY FAINA Administration PFSH Acute PFSH: Medical History Coronary artery disease Hyperlipidemia HTN (hypertension) Social History Smoking and tobacco/nicotine status: current every day tobacco/nicotine user cigarettes Packs smoked per day: 1 Years cigarettes smoked: 10 Second hand smoke exposure: Yes Alcohol intake: never Substance/Drug Use: never Vitals/I&O/Wt Last Vital Signs Temp 98.2 F 02/09/24 11:12 Pulse 53 L 02/09/24 11:12 Resp 16 02/09/24 11:12 BP 116/50 02/09/24 11:12 Pulse Ox 93 02/09/24 11:12 O2 Del Method Room Air 02/09/24 11:12 02/08/24 02/09/24 02/09/24 22:59 06:59 14:59 Intake Total 173.8 / 173.8 Output Total 725 / 725 500 / 500 Balance -551.2 / -551.2 -490 / -490 Weight last 48 hrs Weight 168 lb Weight 345 lb 10.957 oz Weight 149 lb 11.2 oz Weight 170 lb Physical Exam Const: OTHER: GENERAL: Patient is alert, awake and oriented x3. HEART: Regular S1 and S2. No murmur, rub or gallop. LUNGS: Clear to auscultate bilaterally. ABDOMEN: Soft, nontender and nondistended. Positive bowel sounds. No guarding, rebound or tenderness. CENTRAL NERVOUS SYSTEM: Grossly nonfocal. EXTREMITIES: Lower extremities with out edema bilaterally. Pulses palpable in the lower extremities, both dorsalis pedis and posterior tibial. Data 02/08/24 18:15 02/08/24 18:15 A&P Assessment and plan (1) Chest pain: Patient chest pain is suggestive of unstable angina, he is high risk for acute coronary syndrome as defined above will proceed with left heart catheterization tomorrow currently he is chest pain-free at rest. He has been ruled out for acute coronary syndrome. Continue medical management including aspirin high-dose statin and isosorbide mononitrate. Beta-meli will be avoided due to bradycardia. Qualifiers: Chest pain type: precordial pain Qualified Code(s): R07.2 - Precordial pain (2) Coronary artery disease: Patient has history of coronary artery disease including stent in 2001, continue current management and plan as above Qualifiers: Coronary Disease-Associated Artery/Lesion type: [place] artery [place] vs. transplanted heart: [place] heart Associated angina: without angina Qualified Code(s): I25.10 - Atherosclerotic heart disease of [place] coronary artery without angina pectoris (3) HTN (hypertension): Well-controlled continue medicine (4) Bradycardia: Not on beta-meli will continue to monitor (5) Hyperlipidemia with target LDL less than 70: Add fenofibrate, increase atorvastatin to 80 mg. Patient LDL is more than 350 and triglycerides are more than 400. Coding Level of Care Code Acute Code for [facility] Fwd Diagnoses Precordial pain R07.2 Chest pain type: precordial pain Coronary artery disease involving [place] coronary artery of [place] heart without angina pectoris I25.10 Coronary Disease-Associated Artery/Lesion type: [place] artery [place] vs. transplanted heart: [place] heart Associated angina: without angina Essential hypertension I10 Bradycardia R00.1 Hyperlipidemia with target LDL less than 70 E78.5
[2024-02-09] MEDS: fenofibrate 145 mg Tablet PO (14:03)
--- NOTE | 2024-02-09 15:46 | PM.MISC ---
Miscellaneous Note Note: Seen this morning. No acute events overnight. Patient does not have any chest pain at this time. He does say from time to time he will get a little bit of pressure however currently he does not have any discomfort. ? He was seen by cardiology. Plan to go for coronary angiogram in AM.
[2024-02-09] MEDS: atorvastatin 40 mg Tablet 80 MG PO (20:34)
[2024-02-10] VITALS (11 sets, daily range): BP systolic 89–159; BP diastolic 54–74; PULSE 45–61; RESP 13–22; TEMP 36.4–36.7; O2SAT 94–97
[2024-02-10 04:27] LABS: Basophils # 0.1 10^3/uL (0.0-0.1); Basophils % 0.6 %; Eosinophils # 0.6 10^3/uL (0.0-0.8); Eosinophils % 7.1 %; Hematocrit 38.2 % (37-53); Lymphocytes # 3.6 10^3/uL (0.8-4.8); Lymphocytes % 42.9 %; Mean Corpuscular Hemoglobin 30.4 pg (27-33); Mean Corpuscular Volume 92.3 fl (82-101); Mean Platelet Volume 10.9 fL (7.4-10.4); Monocytes # 0.7 10^3/uL (0.2-0.9); Monocytes % 8.4 %; Neutrophils # 3.41 10^3/uL (1.8-7.7); Neutrophils % 40.8 %; Nucleated Red Blood Cells % 0 %; Platelet Count 211 10^3/cmm (157-399); Red Blood Count 4.14 10^6/uL (3.85-5.65); Red Cell Distribution Width 13.6 % (12.1-15.1); White Blood Count 8.35 10^3/uL (3.29-11.43)
[2024-02-10 04:54] LABS: Alanine Aminotransferase 9 U/L (0-41); Albumin Level 3.6 g/dL (3.5-5.2); Alkaline Phosphatase 82 U/L (40-130); Anion Gap 13.4 (5-19); Aspartate Amino Transferase 13 U/L (0-40); Blood Urea Nitrogen 11 mg/dL (8-23); Calcium 8.5 mg/dL (8.5-10.5); Carbon Dioxide 26 mmol/L (22-29); Chloride 104 mmol/L (98-107); Creatinine Clr Calc Pharmacy 77.4629; Globulin 2.1 g/dL (1.3-4.6); Glomerular Filtration Rate 84.2 mL/min (90-130); Glucose 91 mg/dL (65-115); Osmolality Calculated 287 mOsm/kg (285-295); Potassium 4.4 mmol/L (3.5-5.1); Sodium 139 mmol/L (136-145); Total Bilirubin 0.2 mg/dL (0.15-1.2); Total Protein 5.7 g/dL (6.6-8.7)
--- NOTE | 2024-02-10 07:14 | XACV_ITS ---
Exam Room: [facility] Ht: 168 cm Wt: 76 kg BSA: 1.90 m2 Gender: Male : 1955 Any Known Allergies: No known allergies Exam Priority: Routine Procedure(s): Procedure Description: Diagnostic procedure Procedure Description: PCI procedure Procedure Description: Left Heart Catheterization Procedure Description: Left ventriculography Procedure Description: Drug Eluting Coronary Stent Procedure Description: PTCA Procedure Description: Miscellaneous Procedure Description: ACT Procedure Description: Coronary Angiography Ethel CASTILLO; Diagnostic Cath Status: Urgent Diagnostic Findings * Proximal Circumflex: total occlusion, ALPESH: 0 flow, diffuse. Small caliber rudimentary almost nonexisting vessel. * Left Main has no disease. * Proximal Left Anterior Descending: obstructive 60% stenosis, ALPESH: 3 flow. * Mid Left Anterior Descending to Distal Left Anterior Descending: significant 80% stenosis, ALPESH: 3 flow. * Distal Left Anterior Descending: moderate 50% stenosis, ALPESH: 3 flow. * Proximal Right Coronary Artery: subtotal occlusion, ALPESH: 3 flow. * Mid Right Coronary Artery: subtotal occlusion, ALPESH: 0 flow. * Distal Right Coronary Artery: total occlusion, ALPESH: 0 flow. * 1st Diagonal: patent, ALPESH: 3 flow. * 2nd Diagonal: significant 80% stenosis, ALPESH: 3 flow. * Coronary angiography shows right dominance. PCI Status: Urgent PCI Indication: NSTE - ACS Interventional Findings * Mid Left Anterior Descending to Distal Left Anterior Descendin% stenosis treated with a AB TREK 2.50X12 RX BALLOON, JOSEPH Huggins JAMES 3.0X26 CARIDAD, and MDFlakita ERICKSON EUPHORA RX [id number] BALLOON. 0% residual stenosis, ALPESH: 3 flow. * 2nd Diagonal: 80% stenosis treated with a Balloon. 50% residual stenosis, ALPESH: 3 flow. Successful intervention. Conclusions 1. There is total occlusion coronary artery disease with three vessel disease. 2. Normal left ventricular systolic function. Ejection fraction of 55%. 3. Mid Left Anterior Descending to Distal Left Anterior Descending was treated with a Balloon, Drug Eluting Stent, and Balloon. 4. 2nd Diagonal was treated with a Balloon. Recommendations * 1-Return to inpatient for close monitoring and routine cath care 2-Risk factor modification for secondary prevention 3-Statin and aspirin 81 mg life-long, if tolerated 4-Patient was pre-loaded with 600 mg of Plavix, continue Plavix 75mg p.o. daily for at least one year. We will assess at the end of one year again to continue if further or not 5-Continue optimal medical management 6-Follow up with Dr. Davenoprt in four weeks and your primary care in 10 days. Interventional RX Recommendation: PCI w/o planned CABG Anticoagulation: Heparin Ventriculography Ejection Fraction: 55.0 % Pressures Phase:Rest AO : 126 / 63 ( 86 ) @ 9:34:00 AM 131 / 72 ( 97 ) @ 9:49:00 AM 158 / 65 ( 97 ) @ 9:59:00 AM 156 / 48 ( 95 ) @ 9:59:00 AM 137 / 68 ( 94 ) @ 10:09:00 AM 98 / 54 ( 72 ) @ 10:32:00 AM 115 / 63 ( 83 ) @ 10:35:00 AM 91 / 58 ( 72 ) @ 10:47:00 AM 106 / 60 ( 77 ) @ 10:48:00 AM LV : 149 / -18 / 8 @ 9:58:00 AM 146 / -12 13 @ 9:59:00 AM 146 / -12 / 12 @ 9:59:00 AM Valves Phase:DefaultPhase AV : 0.0 @ 10:04:07 AM 0.0 @ 10:04:07 AM AV Mean Gradient: 0.0 @ 10:04:07 AM 0.0 @ 10:04:07 AM Clinical Evaluation EBL: 5mL-10mL Procedural Details Procedure Consent Obtained. Admit Source: In Patient. Pre-Procedure Time Out. Identified patient by full name and date of as verbalized by the patient/guarantor. Does the consent match the physician's order: Yes. Accurate & Complete Informed Consent: Yes. Inpatient/Outpatient History & Physical on Chart: Yes. If H&P is completed, is and addenduem needed: No; If yes, is the addendum complete: N/A. Visualize and Verify Site with Patient/Guarantor: N/A. Relevant Radiology Images available: N/A. Pre-op teaching completed and patient verbalized understanding. The risks, benefits, and alternatives of sedation and/or procedure were discussed by physician. The patient agrees to continue. Procedure started. [facility] Clinical Fraility Score: 5: Mildly Frail. Machine Buffer Indications: Worsening Angina. Chest Pain Symptom Assessment: Typical Angina Symptoms. Cardiovascular Instability: Yes, if yes, Persistant Ischemic Symptoms. Correct patient, site and procedure confirmed by cath team. Current diagnosis: NSTEMI. PERRLA. Strong, equal hand toaster operator bilaterally. Lungs clear x 5 lobes. IV Site on Arrival: 20 gauge in the left anticubital. IV Fluids: 0.9% NaCl at KVO. 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 Pre Procedural Pulses: bilateral dorsalis pedis was Doppled. Pre Procedural Pulses: bilateral posterior tibial was 2+. Pre Procedural Pulses: right radial was 2+. Oxygen started at 2liters/min via nasal canula. right groin was prepped with chloroprep then draped in the usual sterile fashion. right radial was prepped with chloroprep then draped in the usual sterile fashion. Physician notified. Baseline sample Acquired. HR: 45 BPM. Physician arrived. Physician scrubbed in. Immediate Pre-Procedure Time Out. Correct Patient: Yes; Correct Procedure: Yes; Correct Site: Yes; Correct Patient Position: Yes; Correct Supplies: Yes; Dried Flammable Prep: Yes; Blood Products Available: N/A;. Lidocaine 1% infiltrated to the right radial. Arterial access obtained. A 5 namibian TIG catheter in over wire. Catheter removed, hand injection performed through the sheath. A 5 namibian TIG catheter in over wire. Radial access aborted d/t tortuosity. Catheter and wire out. A TR Band was successful obtaining hemostatsis at the Right Radial artery insertion site. Lidocaine 1% infiltrated to the right groin. Arterial access obtained with micropuncture set. A 5 namibian JL4 catheter in over wire. Multiple views taken of left coronary artery. Catheter removed over the standard wire. A 5 namibian JR4 catheter in over wire. Multiple views taken of right coronary artery. Catheter removed over the standard wire. A 5 namibian Angled Pig catheter in over wire. EDP Sample taken: LV 149/-19,8; HR: 51 BPM; SpO2: 99%. LV gram performed in HOUSER @ 10 mL/second for a total of 30 mL. EDP Sample taken: LV 146/-13,13; HR: 50 BPM; SpO2: 99%. Pullback taken: LV 146/-13,12; AO 158/65(97); Mean: 0mmHg, Peak to Peak: 0mmHg, SEP: 4sec/min; HR: 50 BPM; SpO2: 99%. Catheter advanced across the LV. Catheter out. 6 namibian XB 3.5 guide catheter was inserted over the wire. Runthrough guidewire was advanced through the guide catheter to lesion in the mid LAD. Second Runthrough wire inserted and positioned in the diagonal branch. ACT drawn. Results out of range high. Therapeutic limits - pre-heparin administration 90-150 seconds and monitoring heparin during a vascular procedure >250 seconds. Balloon inserted to lesion in the ostial diaganol. Inflation number : 1 A AB MINI TREK 2.00X8 RX BALLOON was prepped and advanced across the 1st Diag , then inflated to 8 LULU for 0:10 seconds. Inflation number: 2 The AB MINI TREK 2.00X8 RX BALLOON was reinflated across the 1st Diag, to 8 LULU for 0:12 seconds. Balloon out. Balloon inserted to lesion in the mid LAD. Inflation number : 1 A AB TREK 2.50X12 RX BALLOON was prepped and advanced across the Mid LAD , then inflated to 8 LULU for 0:13 seconds. Inflation number: 2 The AB TREK 2.50X12 RX BALLOON was reinflated across the Mid LAD, to 8 LULU for 0:01 seconds. Inflation number: 3 The AB TREK 2.50X12 RX BALLOON was reinflated across the Mid LAD, to 8 LULU for 0:05 seconds. Balloon out. ACT drawn. Results seconds. Therapeutic limits - pre-heparin administration 90-150 seconds and monitoring heparin during a vascular procedure >250 seconds. Stent inserted to lesion in the mid LAD. Inflation Number : 4 A MDT R JAMES 3.0X26 CARIDAD -Lot Number# [id number] Exp 08/30/26 was prepped and advanced across the Mid LAD. The stent was deployed at 14 LULU for 0:16 seconds. Stent balloon out over wire. Results checked. Balloon inserted to lesion in the mid LAD. Balloon inserted to lesion in the diaganol. Inflation number : 3 A MDT NC EUPHORA RX 2.0X08MM BALLOON was prepped and advanced across the 1st Diag , then inflated to 12 LULU for 0:13 seconds. Inflation number: 4 The MDT NC EUPHORA RX 2.0X08MM BALLOON was reinflated across the 1st Diag, to 12 LULU for 0:07 seconds. Balloon out. Balloon inserted to lesion in the mid LAD. Inflation number : 5 A MDT NC EUPHORA RX 3.94P88IX BALLOON was prepped and advanced across the Mid LAD , then inflated to 14 LULU for 0:13 seconds. Inflation number: 6 The MDT NC EUPHORA RX [id number] BALLOON was reinflated across the Mid LAD, to 16 LULU for 0:12 seconds. Inflation number: 7 The MDT NC EUPHORA RX 3.95E82RH BALLOON was reinflated across the Mid LAD, to 16 LULU for 0:12 seconds. Balloon out. Results checked. ACT drawn. Results 347 seconds. Therapeutic limits - pre-heparin administration 90-150 seconds and monitoring heparin during a vascular procedure >250 seconds. Results checked. Balloon inserted to lesion in the diaganol. Inflation number : 5 A AB TREK 2.50X8 RX BALLOON was prepped and advanced across the 1st Diag , then inflated to 12 LULU for 0:18 seconds. Inflation number: 6 The AB TREK 2.50X8 RX BALLOON was reinflated across the 1st Diag, to 8 LULU for 0:16 seconds. Balloon out. Results checked. Both Runthrough wires removed. Results checked. Guide catheter out. A Right femoral angiogram was performed to determine safe placement of closure device. Physician scrubbed out. A Suture was successful obtaining hemostatsis at the Right Femoral artery insertion site. Sheath(s) sutured into position with 2-0 silk and sterile 4x4's and Op-site applied over the site. No oozing or signs and symptoms of hematoma noted. Arterial sheath flushed and connected to tranducer and pressure bag with heparinized saline. Post Procedure: Pulses reassessed and unchanged. PERRLA. Strong, equal hand toaster operator bilaterally. No VTE prophylaxis required. Medication's Wasted: Nitro = 49.6 mg. Medication's Wasted: Other = Fentanyl 25 mcg. Medication's Wasted: Other = Atropine 0.5 mL. Total IV fluids: 250 mL. PCI Indication: NSTE. Post-op diagnosis: Severe obstructive 2 vessel CAD. Successful stenting to Mid LAD x1 and POBA Diagonal. Complications: none. Estimated blood loss: 5mL-10mL. Responsiveness - Normal response to verbal stimuli; alert and oriented, PERRLA. Airway - Unaffected, no intervention required; spontaneous ventilation. Circulation: W/N/L, pulses unchanged. Nausea/Vomiting: No. Procedure completed. Patient transferred by bed to 1st floor. Vital chart was stopped. Access Site Site: Right Radial artery Sheath Size: 6 Fr Hemostasis Method: TR Band Hemostasis Success: Successful Site: Right Femoral artery Sheath Size: 6 Fr Hemostasis Method: Suture Hemostasis Success: Successful Procedure Medications Start: 8:11 AM Stop: 8:11 AM Medication: Benadryl Amount: 50 mg Route: I.V. Start: 8:11 AM Stop: 8:11 AM Medication: Fentanyl Amount: 25 mcg Route: I.V. Start: 8:18 AM Stop: 8:18 AM Medication: Versed Amount: 1 mg Route: I.V. Start: 8:29 AM Stop: 8: AM Medication: Nitrogylcerin Amount: 200 mcg Route: I.A. Start: 9:01 AM Stop: 9:01 AM Medication: Heparin Amount: 8000 units Route: I.V. Start: 9:02 AM Stop: 9:02 AM Medication: Aggrastat 12.5 mg/250 mL Amount: 38 ml Route: I.V. bolus Start: 9:09 AM Stop: 9:09 AM Medication: Aggrastat 12.5 mg/250 mL Amount: 13.7 ml/hr Route: I.V. bolus Start: 9:09 AM Stop: 9:09 AM Medication: Versed Amount: 1 mg Route: I.V. Start: 9:28 AM Stop: 9:28 AM Medication: Atropine Amount: 0.5 mg Route: I.V. Start: 9:29 AM Stop: 9:29 AM Medication: Fentanyl Amount: 25 mcg Route: I.V. Start: 9:37 AM Stop: 9:37 AM Medication: 0.9% Saline Amount: 200 ml Route: I.V. bolus Start: 9:40 AM Stop: 9:40 AM Medication: Nitrogylcerin Amount: 200 mcg Route: I.C. I, the attending physician, have reviewed and verified all procedure medications. Yes, all medications given per verbal order History/Risk Factors Hypertension: Yes Dyslipidemia: Yes Peripheral Arterial Disease (PAD): No Myocardial Infarction (MA): No Obesity: No Renal Disease: No Tobacco Use: Current/Recent(w/in 1 year) Prior Interventions PCI: Yes CABG: No Valve Surgery: No Date of PCI: 04/23/2001 Report Signatures Finalized by Tari Davenport MD on 03/09/2024 08:32 PM
[2024-02-10] MEDS: aspirin 81 mg EC Tablet PO (07:33)
[2024-02-10] MEDS: pantoprazole DR 40 mg Tablet PO (07:34)
[2024-02-10] MEDS: fenofibrate 145 mg Tablet PO (07:34)
--- NOTE | 2024-02-10 08:19 | W.PM.OPSUD ---
Surgery/Procedure H&P Update DATE OF PROCEDURE: February 10, 2024 DATE H&P PERFORMED: 02/09/24 H&P UPDATE INFORMATION: I have reviewed H&P completed within last 30 days, I have examined patient prior to procedure and No changes to prior documentation PREOP DIAGNOSIS: nstemi PATIENT REASSESSED PRIOR TO SEDATION, WITH NO CHANGE NOTED: Yes PHYSICAL EXAM: alert, oriented x 3, clear to auscultation bilaterally, regular rate & rhythm and operative site marked AIRWAY EVAL/ANESTHESIA PLAN: ASA II, Risks, benefits & alternatives of sedation and/or procedure discussed and Patient agrees to continue as planned ADDITIONAL INFORMATION: Mallampati 2
--- NOTE | 2024-02-10 10:33 | P.PN_ITS ---
Subjective 2 Subjective: First diagonal was balloon, received stent in LAD, patient will need monitoring for next 24 hours Continue telemonitoring Awake and alert Hemodynamically stable Vitals/I&O/Wt Last Vital Signs Temp 97.7 F 02/10/24 07:18 Pulse 53 L 02/10/24 07:18 Resp 16 02/10/24 07:18 BP 139/55 02/10/24 07:18 Pulse Ox 97 02/10/24 07:18 O2 Del Method Room Air 02/10/24 07:18 02/09/24 02/10/24 02/10/24 22:59 06:59 14:59 Intake Total 600 / 810 Output Total 650 / 1150 800 / 1950 Balance -50 / -340 -800 / -1140 Weight last 48 hrs Weight 76.204 kg Weight 76.204 kg Weight 156.8 kg Weight 67.903 kg Weight 77.111 kg Physical Exam 2 Narrative: pleasant cooperative GCS 15 nonfocal exam no active chest pain Hemodynamic stable Currently on room air Data 02/10/24 03:34 02/10/24 03:34 A&P Assessment and plan (1) JOSÉ LUIS (generalized anxiety disorder): (2) Hyperlipidemia with target LDL less than 70: (3) Chest pain: Qualifiers: Chest pain type: precordial pain Qualified Code(s): R07.2 - Precordial pain (4) Coronary artery disease: Qualifiers: Coronary Disease-Associated Artery/Lesion type: [place] artery [place] vs. transplanted heart: [place] heart Associated angina: without angina Qualified Code(s): I25.10 - Atherosclerotic heart disease of [place] coronary artery without angina pectoris (5) HTN (hypertension): Plan Received stent in LAD, balloon angioplasty. Will monitor for next 24 hours Optimize antiplatelet regimen Monitor bradycardia and adjust medications Will follow cardiology recommendations Continue cardiac diet Patient is currently on atorvastatin 80 mg, patient is getting aspirin 81, will add Plavix Attestations 2 Medical Necessity Statement*: Continue medical management Diagnoses JOSÉ LUIS (generalized anxiety disorder) F41.1 Hyperlipidemia with target LDL less than 70 E78.5 Precordial pain R07.2 Chest pain type: precordial pain Coronary artery disease involving [place] coronary artery of [place] heart without angina pectoris I25.10 Coronary Disease-Associated Artery/Lesion type: [place] artery [place] vs. transplanted heart: [place] heart Associated angina: without angina Essential hypertension I10
[2024-02-10] MEDS: clopidogrel 300 mg Tablet 600 MG PO (11:36)
--- NOTE | 2024-02-10 11:41 | PC.NURSE ---
Per Dr Davenport, plavix given at 1141 when patient was awake enough to swallow the pills. Medication taken and patient taught back about not moving right leg or pushing with right wrist.
--- NOTE | 2024-02-10 11:53 | PM.PN ---
Subjective Subjective: Status post drug-eluting stent to mid LAD and balloon angioplasty to jailed diagonal branch, patient tolerated procedure well and back to room Vitals/I&O/Wt Last Vital Signs Temp 97.7 F 02/10/24 07:18 Pulse 53 L 02/10/24 07:18 Resp 16 02/10/24 07:18 BP 139/55 02/10/24 10:00 Pulse Ox 97 02/10/24 07:18 O2 Del Method Room Air 02/10/24 07:18 02/09/24 02/10/24 02/10/24 22:59 06:59 14:59 Intake Total 600 / 810 Output Total 650 / 1150 800 / 1950 600 / 600 Balance -50 / -340 -800 / -1140 -600 / -600 Weight last 48 hrs Weight 168 lb Weight 168 lb Weight 345 lb 10.957 oz Weight 149 lb 11.2 oz Weight 170 lb Physical Exam Const: COMMON NORMALS: alert OTHER: GENERAL: Patient is sleepy HEART: Regular S1 and S2. No murmur, rub or gallop. LUNGS: Clear to auscultate bilaterally. CENTRAL NERVOUS SYSTEM: Cannot assess since patient is sedated. EXTREMITIES: Lower extremities with out edema bilaterally. Resp: COMMON NORMALS: clear to auscultation bilaterally AUSCULTATION: clear to auscultation bilaterally Neuro: SENSORIUM/ORIENTATION: Yes alert Data 02/10/24 03:34 02/10/24 03:34 A&P Assessment and plan (1) Chest pain: Status post drug-eluting stent to mid LAD and balloon angioplasty to diagonal branch with good angiographic result, at the end of the case ALPESH-3 flow in both vessels was confirmed. Continue aspirin and statin load patient with 600 mg of Plavix once he is more awake, until then continue Aggrastat once given Plavix 600 mg 1 and half hours after that we will stop the Aggrastat Qualifiers: Chest pain type: precordial pain Qualified Code(s): R07.2 - Precordial pain (2) Coronary artery disease: Status post drug-eluting stent to mid LAD aspirin statin and rest of medication except beta-meli will continue since patient was bradycardic Qualifiers: Coronary Disease-Associated Artery/Lesion type: [place] artery [place] vs. transplanted heart: [place] heart Associated angina: without angina Qualified Code(s): I25.10 - Atherosclerotic heart disease of [place] coronary artery without angina pectoris (3) HTN (hypertension): Well-controlled continue medicine (4) Bradycardia: Not on beta-meli will continue to monitor (5) Hyperlipidemia with target LDL less than 70: Add fenofibrate, increase atorvastatin to 80 mg. Patient LDL is more than 350 and triglycerides are more than 400. Attestations Medical Necessity Statement*: Patient is status post PCI to mid LAD, he will be postop watched overnight, I am expecting his stay to cross more than 2 midnights for above defined reason Coding Level of Care Code Acute Code for Chg Fwd Diagnoses Precordial pain R07.2 Chest pain type: precordial pain Coronary artery disease involving [place] coronary artery of [place] heart without angina pectoris I25.10 Coronary Disease-Associated Artery/Lesion type: [place] artery [place] vs. transplanted heart: [place] heart Associated angina: without angina Essential hypertension I10 Bradycardia R00.1 Hyperlipidemia with target LDL less than 70 E78.5
[2024-02-10 14:54] LABS: Partial Thromboplastin Time 51.9 SECONDS (23.9-36.7)
[2024-02-10 16:06] LABS: Partial Thromboplastin Time 34.7 SECONDS (23.9-36.7)
--- NOTE | 2024-02-10 18:09 | PC.NURSE ---
sheath pulled at 1655, control gained and then lost, regained at 1658. Small bruise around puncture site, circled to measure against in the future. Patient tolerated procedure well, vitals remained WNL.
[2024-02-10] MEDS: atorvastatin 40 mg Tablet 80 MG PO (20:35)
[2024-02-11] VITALS (8 sets, daily range): BP systolic 104–167; BP diastolic 56–76; PULSE 52–64; RESP 15–22; TEMP 36.6–37.1; O2SAT 95–99
[2024-02-11 04:57] LABS: Basophils % 0.4 %; Eosinophils # 0.5 10^3/uL (0.0-0.8); Eosinophils % 6.5 %; Hematocrit 36.6 % (37-53); Lymphocytes % 25.7 %; Mean Corpuscular HGB Conc 33.3 g/dL (30-55); Mean Corpuscular Hemoglobin 30.8 pg (27-33); Mean Corpuscular Volume 92.4 fl (82-101); Mean Platelet Volume 10.8 fL (7.4-10.4); Monocytes # 0.8 10^3/uL (0.2-0.9); Monocytes % 10.5 %; Neutrophils # 4.42 10^3/uL (1.8-7.7); Neutrophils % 56.6 %; Nucleated Red Blood Cells % 0 %; Platelet Count 226 10^3/cmm (157-399); Red Blood Count 3.96 10^6/uL (3.85-5.65); Red Cell Distribution Width 13.4 % (12.1-15.1); White Blood Count 7.81 10^3/uL (3.29-11.43)
[2024-02-11 05:27] LABS: Anion Gap 9.2 (5-19); Blood Urea Nitrogen 13 mg/dL (8-23); Calcium 8.5 mg/dL (8.5-10.5); Carbon Dioxide 26 mmol/L (22-29); Chloride 101 mmol/L (98-107); Creatinine Clr Calc Pharmacy 76.3386; Glomerular Filtration Rate 84.2 mL/min (90-130); Glucose 98 mg/dL (65-115); Osmolality Calculated 274 mOsm/kg (285-295); Potassium 4.2 mmol/L (3.5-5.1); Sodium 132 mmol/L (136-145)
[2024-02-11] MEDS: clopidogrel 75 mg Tablet PO (08:20)
[2024-02-11] MEDS: lisinopril 5 mg Tablet PO (08:20)
[2024-02-11] MEDS: fenofibrate 145 mg Tablet PO (08:20)
[2024-02-11] MEDS: pantoprazole DR 40 mg Tablet PO (08:20)
[2024-02-11] MEDS: aspirin 81 mg EC Tablet PO (08:20)
--- NOTE | 2024-02-11 09:13 | PC.SOCIAL ---
IMM Update Pg. 2 of IMM Updated and reviewed with patient. Copy provided.
--- NOTE | 2024-02-11 09:26 | PM.DCS ---
Discharge Providers Date of Admission: 02/10/24 13:48 Date of Discharge: February 11, 2024 Attending Provider at Admission: Jimmy Mckeon MD Attending Provider at Discharge: Tari Hammer MD Diagnoses at Discharge Discharge Diagnosis (1) Chest pain: Status: Acute Qualifiers: Chest pain type: precordial pain Qualified Code(s): R07.2 - Precordial pain (2) Coronary artery disease: Status: Acute Qualifiers: Coronary Disease-Associated Artery/Lesion type: torres martinez artery [place] vs. transplanted heart: torres martinez heart Associated angina: without angina Qualified Code(s): I25.10 - Atherosclerotic heart disease of torres martinez coronary artery without angina pectoris (3) HTN (hypertension): Status: Acute (4) Bradycardia: Status: Acute (5) Hyperlipidemia with target LDL less than 70: Status: Acute Reason for Visit Reason for Visit: CP Hospital Course Hospital Course 68-year-old male who was admitted for management evaluation of chest pain, patient is stating that he lives [place] the grid, he was admitted for management of typical unstable angina. Cardiology was consulted, patient went for coronary angiogram status post angioplasty LAD 1 stent and balloon angioplasty diagonal branch, patient tolerated well, no postop complication, he carries history of coronary disease stent 2001, patient gets medications from the nearby [facility] pharmacy, he has been counseled to continue his dual antiplatelet therapy aspirin and Plavix along cholesterol medication atorvastatin 80 mg and fenofibrate as per cardiology because his LDL is more than 350 and triglyceride more than 400. Patient is not on beta-meli secondary to bradycardia. Physical Exam Narrative: Pleasant cooperative Bradycardia hemodynamic stable GCS 15 No active chest pain Discharge Data Studies Completed and Pending Completed Studies During Hospitalization Category Date Time Status CTA chest [CT angio chest PE protcl [id number]] Routine Cat Scan 02/09/24 02:13 Completed XR chest 1V portable [id number] Stat Exams 02/08/24 18:38 Completed CV. echo complete* [id number] Routine Ultrasound 02/09/24 01:27 Completed Pending at discharge Category Date Time Status DIGITAL CONTENT COORDINATOR request for service Routine Exams 02/10/24 07:14 Taken Radiology Impressions Chest X-Ray 02/08/24 18:38 IMPRESSION: No acute cardiopulmonary disease. Chest CTA 02/09/24 02:13 IMPRESSION: No pulmonary embolus. Laboratory Results WBC 7.81 10^3/uL (3.29-11.43) 02/11/24 04:26 RBC 3.96 10^6/uL (3.85-5.65) 02/11/24 04:26 Hgb 12.20 g/dL (11.27-16.99) 02/11/24 04:26 Hct 36.6 % (37-53) L 02/11/24 04:26 MCV 92.4 fl (82-101) 02/11/24 04:26 MCH 30.8 pg (27-33) 02/11/24 04:26 MCHC 33.3 g/dL (30-55) 02/11/24 04:26 RDW 13.4 % (12.1-15.1) 02/11/24 04:26 Plt Count 226 10^3/cmm (157-399) 02/11/24 04:26 MPV 10.8 fL (7.4-10.4) H 02/11/24 04:26 Neut % (Auto) 56.6 % 02/11/24 04:26 Lymph % (Auto) 25.7 % 02/11/24 04:26 [place] % (Auto) 10.5 % 02/11/24 04:26 Eos % (Auto) 6.5 % 02/11/24 04:26 Baso % (Auto) 0.4 % 02/11/24 04:26 Neut # (Auto) 4.42 10^3/uL (1.8-7.7) 02/11/24 04:26 Lymph # (Auto) 2.0 10^3/uL (0.8-4.8) 02/11/24 04:26 [place] # (Auto) 0.8 10^3/uL (0.2-0.9) 02/11/24 04:26 Eos # (Auto) 0.5 10^3/uL (0.0-0.8) 02/11/24 04:26 Baso # (Auto) 0.0 10^3/uL (0.0-0.1) 02/11/24 04:26 Nucleated RBC % (auto) 0 % 02/11/24 04:26 Nucleated RBCs # 0.0 /100WBC 02/11/24 04:26 PT 12.10 SECONDS (12.1-14.9) 02/08/24 18:51 INR 0.87 (0.8-1.2) 02/08/24 18:51 APTT 34.7 SECONDS (23.9-36.7) 02/10/24 15:44 D-Dimer 0.92 ug/mLFEU (0-0.59) H 02/08/24 18:51 Sodium 132 mmol/L (136-145) L 02/11/24 04:26 Potassium 4.2 mmol/L (3.5-5.1) 02/11/24 04:26 Chloride 101 mmol/L (98-107) 02/11/24 04:26 Carbon Dioxide 26 mmol/L (22-29) 02/11/24 04:26 Anion Gap 9.2 (5-19) 02/11/24 04:26 BUN 13 mg/dL (8-23) 02/11/24 04:26 Creatinine 0.9 mg/dL (0.7-1.2) 02/11/24 04:26 GFR Calculation 84.2 mL/min (90-130) L 02/11/24 04:26 Glucose 98 mg/dL (65-115) 02/11/24 04:26 Estimat Average Glucose 105 02/08/24 18:15 Hemoglobin A1c 5.3 % (4.0-6.0) 02/08/24 18:15 Calculated Osmolality 274 mOsm/kg (285-295) L 02/11/24 04:26 Calcium 8.5 mg/dL (8.5-10.5) 02/11/24 04:26 Total Bilirubin 0.2 mg/dL (0.15-1.2) 02/10/24 03:34 AST 13 U/L (0-40) 02/10/24 03:34 ALT 9 U/L (0-41) 02/10/24 03:34 Alkaline Phosphatase 82 U/L (40-130) 02/10/24 03:34 Troponin T Baseline 12 ng/L (0-15) 02/08/24 18:15 Troponin T 120 Minute 13.73 ng/L (0-15) 02/08/24 20:18 Delta Troponin T 1.73 ABS# (0-10) 02/08/24 20:18 Troponin T Hi Sens 6Hr 12.72 ng/L (0-15) 02/09/24 00:24 Troponin T Hi Sens 6Hr Delta 0.72 ng/L (0-12) 02/09/24 00:24 NT-Pro-B Natriuret Pep 125 pg/mL (0-125) 02/08/24 18:15 Total Protein 5.7 g/dL (6.6-8.7) L 02/10/24 03:34 Albumin 3.6 g/dL (3.5-5.2) 02/10/24 03:34 Globulin 2.1 g/dL (1.3-4.6) 02/10/24 03:34 Triglycerides 480 mg/dL (0-150) H 02/08/24 18:15 Cholesterol 433 mg/dL (0-200) H 02/08/24 18:15 LDL Cholesterol Direct 352 mg/dL (0-100) H 02/08/24 18:15 LDL Cholesterol, Calc Not Reportable 02/08/24 18:15 HDL Cholesterol 47 mg/dL (60-100) L 02/08/24 18:15 LDL/HDL Ratio Not Reportable 02/08/24 18:15 Cholesterol/HDL Ratio 9.21 mg/dL (1.0-5.00) H 02/08/24 18:15 Lipase 27 U/L (13-60) 02/08/24 18:15 TSH 1.19 uIU/mL (0.27-4.20) 02/08/24 18:15 Vitals Last Vital Signs Temp 97.8 F 02/11/24 08:00 Pulse 52 L 02/11/24 08:00 Resp 16 02/11/24 08:00 BP 149/72 02/11/24 08:00 Pulse Ox 95 02/11/24 08:00 O2 Del Method Room Air 02/11/24 08:00 Discharge Plan Discharge Patient Disposition: Home Condition: Stable Prescriptions: New aspirin 81 mg Tablet,Delayed Release (Dr/Ec) 81 mg PO DAILY Qty: 90 4RF clopidogrel 75 mg Tablet 75 mg PO DAILY Qty: 90 4RF fenofibrate nanocrystallized 145 mg Tablet 145 mg PO DAILY Qty: 90 4RF atorvastatin 40 mg Tablet 80 mg PO BEDTIME Qty: 120 4RF lisinopril 5 mg Tablet 5 mg PO DAILY Qty: 90 3RF Continued nitroglycerin 0.4 mg tablet, sublingual 0.4 mg sublingual Q5M PRN (Reason: chest pain) Qty: 25 1RF Rx Instructions: do not exceed 3 doses per episode Discontinued aspirin [Ecotrin] 325 mg tablet,delayed release (DR/EC) 325 mg PO BEDTIME Discharge Orders: Discharge Order (Routine); Ordered 02/11/24 Ordered By: Tari Hammer Patient Instructions: Opioid Safety Discharge Attestations Time Spent in Discharge Care*: greater than 30 min Quality Metrics Clinical Quality Measures [ No reported AMI, CVA or VTE this stay] Coding Level of Care Code Acute Code for Chg Fwd Diagnoses Precordial pain R07.2 Chest pain type: precordial pain Coronary artery disease involving torres martinez coronary artery of torres martinez heart without angina pectoris I25.10 Coronary Disease-Associated Artery/Lesion type: torres martinez artery [place] vs. transplanted heart: torres martinez heart Associated angina: without angina Essential hypertension I10 Bradycardia R00.1 Hyperlipidemia with target LDL less than 70 E78.5
--- NOTE | 2024-02-11 10:36 | PC.CHAP ---
Pastoral Care Encounter/Spiritual Assessment Type of Contact [] Declined yacht builder visit [] Patient/Family/Request visit [] Outpatient visit [] Follow-up visit [] Physician referral [] Code/Alert [x] Routine visit [] Staff referral [] Actively dying [] Patient sleeping [] Family support [] [] Out of room [] Palliative care [] [] Receiving care in room [] Pre-surgical visit [] Trauma [] Long length of stay [] ICU visit [] Other: Relational/Emotional Strength [] Patient feels connected with others/family/visitors/staff [] Distress [] Loneliness/isolation [] Abandonment Spirituality of Patient [x] Person of Mercedes [] Attends Uatsdin of their Mercedes [x] Believes in Prayer [] Reads Bible or Hoahaoism materials [] There are Spiritual issues to be addressed Packing Room Inspector Interventions [x] Prayer [x] Active listening [] Non-anxious presence [] Spiritual/emotional support [] Crisis/trauma care [] Spiritual counseling [] Bereavement support [] Provided bereavement packet [x] Provided Bible/devotional materials [] Provided toy/stuffed animal, coloring book to patient or family member [] Provided Communion [] Anointing/[place] [] Salvation [x] Completed spiritual assessment [] Other: Impact on Illness or Injury [] Angry [] Fearful [] Anxious [] Often cries [] Exhaustion [] Unable to work [] Unable to attend restoration [] Unable to walk/stand [] Unable to read [] Unable to drive [] Unable to eat/drink [] Unable to sleep [] Unable to be with family [] Patient intubated [] Other: Summary Time spent with patient 5 min
--- NOTE | 2024-02-11 11:43 | ECG_ITS ---
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
[2024-02-11] MEDS: ALPRAZolam 0.5 mg Tablet 0.25 MG PO (12:06)
--- NOTE | 2024-02-11 12:18 | PC.NURSE ---
Addendum entered by Medina Reis RN 02/11/24 12:28: Dr Hammer was notified. Will continue to monitor until discharge. Original Note: Patient was c/o increased chest pressure. VS wnl. Obtained EKG showed normal SB no other ectopy. Instructed patient on post cath with pci expectations. Patient verbalized understanding. Patient is worried about his finances and potentially losing his car. I provided Xanax 0.25mg PO to help with nerves.
--- NOTE | 2024-02-11 13:02 | PC.NURSE ---
Patient reports feeling some better. Patient says I am just scared . Reassured patient and aknowledged his fears. Patient expressed thanks. Will continue to monitor. Informed patient of his pending discharge. He stated, my ride can be here around 3pm.
--- NOTE | 2024-02-11 13:11 | PM.PN ---
Subjective Subjective: Status post drug-eluting stent to mid LAD and balloon angioplasty to jailed diagonal branch, patient tolerated procedure well. He is without pain at this time. Right groin puncture site clean, dry, intact without s/s of hematoma or pseudoaneurysm. Vital signs are stable. Patient still has some bradycardia in the 50s but is asymptomatic at this time. Patient lives far out without many resources. We will consult social work to assist with this. Transportation is an issue. Patient continues aspirin and Plavix. No signs or symptoms of abnormal bleeding present. Creatinine remained stable at 0.9. Medications: Reviewed: Yes Vitals/I&O/Wt Last Vital Signs Temp 97.8 F 02/11/24 08:00 Pulse 57 L 02/11/24 12:21 Resp 22 H 02/11/24 12:21 BP 167/76 02/11/24 12:21 Pulse Ox 95 02/11/24 08:00 O2 Del Method Room Air 02/11/24 08:00 02/10/24 02/11/24 02/11/24 22:59 06:59 14:59 Intake Total 800 / 800 Output Total 0 / 1750 925 / 2675 800 / 800 Balance 0 / -1510 -925 / -2435 0 / 0 Weight last 48 hrs Weight 158 lb 4.8 oz Weight 162 lb 8 oz Weight 168 lb Physical Exam Narrative: Conostitutional: No apparent distress, healthy appearing, well nourished HENMT: normoceophalic Eye: PERRL Neck: No carotid bruit bilaterally Muskuloskeletal: Full ROM Lymphatic: no lymphedema noted Respiratory: Normal respiratory effort, clear to auscultation bilaterally throughout all lung perez, no use of accessory muscles Cardio: No JVD, regular rate, regular rhythm, S1 S2 normal, no murmurs, peripheral pulses 2+ throughout GI: Normal to inspection, nondistended Extremities: Full ROM, normal, normal capillary refill, no cyanosis or edema, right groin puncture site as stated in HPI, area soft and nontender Neuro: Alert and oriented x4, no focal motor deficits Psych: Affect normal, denies suicidal ideation, mental status grossly normal Skin: No rashes or lesions noted, no wounds Data 02/11/24 04:26 02/11/24 04:26 A&P Assessment and plan (1) NSTEMI (non-ST elevated myocardial infarction): Patient status post stenting to the LAD and angioplasty to the diagonal branch. He is doing well without signs or symptoms of angina. Continue Plavix and aspirin. Plavix for at least 1 year. (2) Hyperlipidemia with target LDL less than 70: Patient to continue high-dose statin therapy with atorvastatin 80 mg daily. This will need to be monitored in the future. (3) Bradycardia: Asymptomatic at this time heart rate in the 50s. Will avoid beta blocking agents at this time. (4) Chest pain: Resolved status post stenting of the LAD. Qualifiers: Chest pain type: precordial pain Qualified Code(s): R07.2 - Precordial pain (5) Coronary artery disease: As stated above continue dual antiplatelet therapy including Plavix for at least 1 year. Patient is status post stenting to the LAD. Continue risk factor modification with statin therapy and cholesterol as well as blood pressure management. Qualifiers: Associated angina: without angina Coronary Disease-Associated Artery/Lesion type: [place] artery [place] vs. transplanted heart: [place] heart Qualified Code(s): I25.10 - Atherosclerotic heart disease of [place] coronary artery without angina pectoris (6) HTN (hypertension): Blood pressure is labile. He has had a couple of elevated readings but overall it is stable. Will continue to monitor continue current medication therapy with lisinopril 5 mg Qualifiers: Hypertension type: primary hypertension Qualified Code(s): I10 - Essential (primary) hypertension Attestations Medical Necessity Statement*: Patient was admitted with non-ST elevation SC and taken to the [facility] requiring PCI. Because of the fact patient had non-ST elevation SC and had PCI he requires continuation hospitalization passing 2 midnight stay Coding Level of Care Code Acute Code for [facility] Diagnoses NSTEMI (non-ST elevated myocardial infarction) I21.4 Hyperlipidemia with target LDL less than 70 E78.5 Bradycardia R00.1 Precordial pain R07.2 Chest pain type: precordial pain Coronary artery disease involving [place] coronary artery of [place] heart without angina pectoris I25.10 Associated angina: without angina Coronary Disease-Associated Artery/Lesion type: [place] artery [place] vs. transplanted heart: [place] heart Primary hypertension I10 Hypertension type: primary hypertension
--- NOTE | 2024-02-11 16:02 | PC.NURSE ---
Patient discharged to home. Instruction provided regarding follow up information and new medications. Medications delivered by Meds to bed. Patient verbalized complete understanding. patient taken by wheelchair to private vehicle with family at side. patient denies pain or needs at discharged. no distress observed.
== END 2024-02-11 15:45 | disposition home or self-care (01) | DRG 322 ==
LOC: ER 21:15 → CSU 02-09 01:19
PROVIDERS: Internal Medicine Cardiovascular Disease; Student in an Organized Health Care Education/Training Program; Admitting Provider Student in an Organized Health Care Education/Training Program; Emergency Provider Emergency Medicine; Visit Provider Internal Medicine
PROC: 027034Z Dilation of Coronary Artery, One Artery with Drug-eluting Intraluminal Device, Percutaneous Approach (ICD-10-PCS; principal; 2024-02-10 08:00)
PROC: 027034Z Dilation of Coronary Artery, One Artery with Drug-eluting Intraluminal Device, Percutaneous Approach (ICD-10-PCS; 2024-02-10 08:00)
DX: I21.4 Non-ST elevation (NSTEMI) myocardial infarction (principal); I25.10 Atherosclerotic heart disease of native coronary artery without angina pectoris; E78.5 Hyperlipidemia, unspecified; R00.1 Bradycardia, unspecified; I10 Essential (primary) hypertension; F17.210 Nicotine dependence, cigarettes, uncomplicated; E78.1 Pure hyperglyceridemia; F41.1 Generalized anxiety disorder; Z79.82 Long term (current) use of aspirin; Z79.02 Long term (current) use of antithrombotics/antiplatelets; Z95.5 Presence of coronary angioplasty implant and graft
CPT/HCPCS: 36415; 71045; 71275; 80048; 80053; 80061; 83036; 83690; 83721; 83880; 84443; 84484; 85025; 85347; 85378; 85610; 85730; 92920; 93005; 93306; 93458; 96365; 96366; 96372; 96374; 96375; 96376; 99152; 99153; 99285; C1725; C1769; C1874; C1887; C1894; C9600; G0378; J0461; J1200; J1644; J1650; J2250; J2270; J2405; J3010; J3490; J7050; Q9967

== ENCOUNTER → 2024-02-26 13:40 | Outpatient (BNVA) | payer MEDICARE, SELFPAY | PROVIDERS: PCP Family Medicine; Visit Provider Nurse Practitioner Family | DX: I25.10 Atherosclerotic heart disease of native coronary artery without angina pectoris (principal); E78.1 Pure hyperglyceridemia; I10 Essential (primary) hypertension; F17.210 Nicotine dependence, cigarettes, uncomplicated | CPT/HCPCS: 99214 ==

== ENCOUNTER → 2024-04-28 14:46 | Outpatient (BNVA) | payer MEDICARE, SELFPAY | PROVIDERS: PCP Family Medicine; Visit Provider Internal Medicine | DX: I25.10 Atherosclerotic heart disease of native coronary artery without angina pectoris (principal); I10 Essential (primary) hypertension; E78.1 Pure hyperglyceridemia; R07.2 Precordial pain; R07.89 Other chest pain; F17.210 Nicotine dependence, cigarettes, uncomplicated | CPT/HCPCS: 99214 ==

== ENCOUNTER 2024-05-21 09:53 | Outpatient (CLI) | payer MEDICARE, SELFPAY ==
[2024-05-21 10:12] VITALS: BMI 24.8
--- NOTE | 2024-05-21 10:12 | ECG_ITS ---
[employer] [facility] Test Date: 2024-05-21 Pat Name: Kiersten Sibley Department: Room: Gender: Male Housing Grant Analyst: : 1955 Requested By: Simon Reynoso Order Number: [id number] Slick MD: Simon Reynoso M.D. Interpretive Statements LEXISCAN: Procedure: At the baseline, the blood pressure was 137/66 mmHg with a heart rate of 57 bpm. The electrocardiogram showed normal sinus rhythm, normal axis with normal ST and T's. The Lexiscan was infused over a period of 20 seconds. A total of 0.4 mg of Lexiscan was infused. The stress phase was continued for a total of 5 minutes. Heart rate was at the end of stress phase was 69 bpm and a blood pressure of 116/53 mmHg. The EKG at the peak infusion revealed normal sinus rhythm with no significant ST-T wave changes. Sestamibi was injected 20 seconds after the Lexiscan infusion. Blood pressure at the end of recovery phase was 137/65 mmHg with a heart rate of 64 bpm. Conclusion: 1. Normal EKG response to Lexiscan infusion 2. No Lexiscan induced chest pain or cardiac arrhythmia. 3. Normal blood pressure and heart rate response. 4. Sestamibi/sestamibi perfusion scan pending; see separate report. Electronically Signed On 05-24-2024 23:54:54 ARCHEOLOGY FACULTY MEMBER by Simon Reynoso M.D. [id number]
--- NOTE | 2024-05-21 10:13 | NMCV_ITS ---
NM julio perf SPECT r/s* [id number] Kiersten Sibley Age: 69 Gender: M : 1955 Exam Date: 05/21/2024 10:13 Ordering Phys: Simon Reynoso M.D ([email or web address]) Technologist: MARQUIS Hernandez Exam Location: [facility] Indications: CP STRESS TEST Please see separate stress test report in [facility] for full findings IMAGE PROTOCOL Rest/Stress 1 Lexiscan Day Radiopharmaceutical Dose (mCi) Administration Site Administered by Rest: Tc-99m 10.7 IV Amanda Abdirahman, STRAINER CLEANER Sestamibi Stress:Tc-99m 33.0 IV Amanda Abdirahman, STRAINER CLEANER Sestamibi Rest: 21-May-2024 60 Discovery 630 Stress: 21-May-2024 30 Discovery 630 0.4mg Lexiscan. Images obtained in supine and prone position. SPECT RESULTS Technical Quality: Good Raw Data Analysis: Subdiaphragmatic activity Image Corrections: No attenuation or motion correction applied Summed Stress Score: 12 Summed Rest Score: 0 Summed Difference Score: 12 PERFUSION FINDINGS Large area of moderate to severe reversibility noted in basal to distal inferolateral basal to distal inferior inferoseptal and basal to distal anteroseptal wall suggestive of moderate to severe ischemia in all 3 vessel territories including LAD circumflex and RCA. FUNCTIONAL RESULTS (calculated via Gated SPECT) Stress Image LV EF (%): 61 Stress EDV (mL):114 TID: 1.22 Stress ESV (mL):44 FUNCTIONAL FINDINGS: There appeared to be inferior and lateral wall hypokinesis, TID ratio is elevated which could be secondary to multivessel coronary artery disease. IMPRESSIONS Large area of moderate to severe reversibility noted in basal to distal inferolateral basal to distal inferior inferoseptal and basal to distal anteroseptal wall suggestive of moderate to severe ischemia in all 3 vessel territories including LAD circumflex and RCA. This is an abnormal stress test further exploration if clinically indicated with invasive modality may need to be considered. Tari Davenport MD (Electronically Signed) Final Date: 21 May 2024 14:59 S
[2024-05-21] MEDS: regadenoson 0.4 Mg/5 ml Syringe IVP (11:55)
[2024-05-21 12:09] VITALS: BP 137/65; PULSE 64
== END 2024-05-21 09:54 | disposition home or self-care (01) ==
PROVIDERS: PCP Family Medicine; Visit Provider Internal Medicine
DX: R07.9 Chest pain, unspecified (principal); R93.1 Abnormal findings on diagnostic imaging of heart and coronary circulation
CPT/HCPCS: 36415; 78452; 93017; 96374; A9500; J2785

== ENCOUNTER 2024-05-31 22:09 | Observation (INO) | payer MEDICARE, SELFPAY ==
--- NOTE | 2024-05-31 22:21 | ECG_ITS ---
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
[2024-05-31 22:23] VITALS: BP 133/69; PULSE 67; RESP 16; TEMP 36.6; O2SAT 97; BMI 24.8
--- NOTE | 2024-05-31 22:49 | XRR_ITS ---
PROCEDURE INFORMATION: Exam: XR Chest Exam date and time: 06/01/2024 4:24 AM Age: 69 years old Clinical indication: Chest pressure; Prior surgery; Surgery date: 6+ months; Surgery type: Coronary stents; C/O chest pain; Additional info: Cp TECHNIQUE: Imaging protocol: Radiologic exam of the chest. Views: 1 view. COMPARISON: CT angio chest PE protcl [id number] 02/09/2024 3:16 AM FINDINGS: Lungs: No infiltrate. Pleural spaces: Unremarkable. No pleural effusion. No pneumothorax. Heart/Mediastinum: There is mild cardiomegaly with vascular congestion. Bones/joints: Unremarkable. XR/XR chest 1V portable [id number] IMPRESSION: Mild cardiomegaly with vascular congestion.
[2024-05-31 23:52] LABS: Anion Gap 16.2 (5-19); Blood Urea Nitrogen 15 mg/dL (8-23); Calcium 9.2 mg/dL (8.5-10.5); Carbon Dioxide 22 mmol/L (22-29); Chloride 104 mmol/L (98-107); Creatinine Clr Calc Pharmacy 82.7765; Glomerular Filtration Rate 96.1 mL/min (90-130); Glucose 110 mg/dL (65-115); Osmolality Calculated 287 mOsm/kg (285-295); Potassium 4.2 mmol/L (3.5-5.1); Sodium 138 mmol/L (136-145)
[2024-05-31 23:53] LABS: Basophils # 0.1 10^3/uL (0.0-0.1); Basophils % 0.7 %; Eosinophils # 0.6 10^3/uL (0.0-0.8); Eosinophils % 7.3 %; Hematocrit 37.6 % (37-53); Lymphocytes # 2.5 10^3/uL (0.8-4.8); Lymphocytes % 33.3 %; Mean Corpuscular HGB Conc 31.9 g/dL (30-55); Mean Corpuscular Hemoglobin 30.1 pg (27-33); Mean Corpuscular Volume 94.2 fl (82-101); Mean Platelet Volume 10.8 fL (7.4-10.4); Monocytes # 0.8 10^3/uL (0.2-0.9); Monocytes % 10.4 %; Neutrophils # 3.67 10^3/uL (1.8-7.7); Neutrophils % 48.2 %; Nucleated Red Blood Cells % 0 %; Platelet Count 247 10^3/cmm (157-399); Red Blood Count 3.99 10^6/uL (3.85-5.65); Red Cell Distribution Width 13.9 % (12.1-15.1); Troponin(5th) Baseline 9 ng/L (0-15); White Blood Count 7.62 10^3/uL (3.29-11.43)
[2024-06-01] VITALS (89 sets, daily range): BP systolic 112–151; BP diastolic 45–74; PULSE 46–67; RESP 12–24; O2SAT 93–100
--- NOTE | 2024-06-01 04:49 | ECG_ITS ---
[facility]: 2024-[facility] Pat Name: Kiersten Sibley Department: Room: ED Gender: Male Privacy Analyst: : 1955 Requested By: Manan Chadwick Order Number: [id number] Slick MD: URIAH FRAIRE Measurements Intervals [place] Rate: 49 P: 59 [place]: 173 QRS: 55 QRSD: 98 T: 51 QT: 414 QTc: 377 Interpretive Statements SINUS BRADYCARDIA Compared to ECG 05/31/2024 22:21:57 Sinus rhythm no longer present Electronically Signed On 06-01-2024 21:06:44 JUKEBOX OPERATOR by URIAH FRAIRE [id number]
--- NOTE | 2024-06-01 05:22 | ED_ITS ---
HPI - Chest Pain 2 General: Chief Complaint: Chest Pain Stated Complaint: CP Time Seen by Provider: 06/01/24 04:24 History of Present Illness: 69-year-old male patient with a history of coronary disease. He has stent placed back in January. He recently failed a stress test here at this facility, now scheduled for an outpatient catheterization tomorrow, Sunday, at 7:30 in the morning. He had increasing chest discomfort over the last couple of days. Nearly constant discomfort over the last 24 hours. He has had several nitroglycerin at home without much improvement. He is somewhat short of breath. No nausea or vomiting. No fever or cough. Related Data Previous Rx's ?Medication ?Instructions ?Recorded aspirin 81 mg tablet,delayed 81 mg PO DAILY #90 tabs 1 release clopidogrel 75 mg tablet 75 mg PO DAILY #90 tabs 01/22 05/16 fenofibrate nanocrystallized 145 145 mg PO DAILY #90 t abs 02/11/24 mg tablet lisinopril 5 mg tablet 5 mg PO DAILY #90 tabs 02/10 nitroglycerin 0.4 mg sublingual 0.4 mg sublingual Q5M PRN chest 02/26/24 tablet pain #25 tabs atorvastatin 40 mg tablet 80 mg (2 x 40 mg) PO BEDTIME #120 04/14/24 tabs isosorbide mononitrate 30 mg 30 mg PO BID #180 tabs tablet,extended release 24 hr albuterol sulfate 90 mcg/actuation 2 inh inhalation Q6 H PRN shortness 04/28/24 breath activated powder inhaler of breath or wheezing #1 ea Allergies Allergy/AdvReac Type Severity Reaction Status Date / Time No Known Allergies Allergy Verified 04/28/24 14:57 [facility] ED 2 PFSH: Medical History Chest pain Coronary artery disease HTN (hypertension) Hyperlipidemia with target LDL less than 70 Bradycardia JOSÉ LUIS (generalized anxiety disorder) Hyperlipidemia Social History Smoking and tobacco/nicotine status: current every day tobacco/nicotine user cigarettes Packs smoked per day: 1 Years cigarettes smoked: 10 Second hand smoke exposure: Yes Alcohol intake: never Substance/Drug Use: never Physical Exam 2 Const: GENERAL APPEARANCE: cooperative and ill appearing (Mildly) HENMT: COMMON NORMALS: normocephalic, atraumatic and Normal external nose present HEAD & SCALP: normocephalic and atraumatic FACE & SINUS: normal facial exam and face symmetric NOSE: Normal external nose present Eye: COMMON NORMALS: Equal, round and reactive pupils present and EOMs intact bilaterally PUPIL: Yes Equal, round and reactive pupils present Neck/C-Spine: GENERAL: Yes trachea midline Chest: CHEST: Yes Symmetrical chest wall rise Resp: COMMON NORMALS: normal respiratory effort, No retractions, No use of accessory muscles and clear to auscultation bilaterally AUSCULTATION: clear to auscultation bilaterally Cardio: COMMON NORMALS: regular rate and regular rhythm RATE: regular rate RHYTHM: regular rhythm GI: COMMON NORMALS: Normal to inspection, nondistended, normoactive bowel sounds present Extremity: COMMON NORMALS: no pedal edema Neuro: RYAN COMA SCALE: document GCS findings Ryan coma scale eye opening: Spontaneous Ryan coma scale verbal response: Orientated [place] coma scale motor response: Obey commands [place] coma scale total score: 15 S ENSORY EXAM: Yes extremities (intact) Psych: COMMON NORMALS: speech normal SPEECH: Yes normal speech Skin: COMMON NORMALS: no rashes or lesions noted GENERAL SKIN EXAM: no rashes or lesions noted Course 2 Vital Signs: Vital signs: Vital Signs Temperature 97.8 F 05/31/24 22:23 Pulse Rate 67 05/31/24 22:23 Respiratory Rate 16 05/31/24 22:23 Blood Pressure 133/69 05/31/24 22:23 Pulse Oximetry 97 05/31/24 22:23 Oxygen Delivery Me thod Room Air 05/31/24 22:23 MDM - Chest Pain Medical Decision Making Patient had recently failed a stress test, with a history of coronary disease. He is here with chest discomfort. He is scheduled for cath in the morning. Chichi stayed down at 2 hours and now 6 hours. His EKG is nonacute. His chest x-ray shows some vascular congestion. He will be observed. He will go to [facility]. Hospitalist is aware. Lab Data 05/31/24 23:05 05/31/24 23:05 Radiology Impressions Chest X-Ray 05/31/24 22:49 IMPRESSION: Mild cardiomegaly with vascular congestion. Laboratory Results WBC 7.62 10^3/uL (3.29-11.43) 05/31/24 23:05 RBC 3.99 10^6/uL (3.85-5.65) 05/31/24 23:05 Hgb 12.00 g/dL (11.27-16.99) 05/31/24 23:05 Hct 37.6 % (37-53) 05/31/24 23:05 MCV 94.2 fl (82-101) 05/31/24 23:05 MCH 30.1 pg (27-33) 05/31/24 23:05 MCHC 31.9 g/dL (30-55) 05/31/24 23:05 RDW 13.9 % (12.1-15.1) 05/31/24 23:05 Plt Count 247 10^3/cmm (157-399) 05/31/24 23:05 MPV 10.8 fL (7.4-10.4) H 05/31/24 23:05 Neut % (Auto) 48.2 % 05/31/24 23:05 Lymph % (Auto) 33.3 % 05/31/24 23:05 [place] % (Auto) 10.4 % 05/31/24 23:05 Eos % (Auto) 7.3 % 05/31/24 23:05 Baso % (Auto) 0.7 % 05/31/24 23:05 Neut # (Auto) 3.67 10^3/uL (1.8-7.7) 05/31/24 23:05 Lymph # (Auto) 2.5 10^3/uL (0.8-4.8) 05/31/24 23:05 [place] # (Auto) 0.8 10^3/uL (0.2-0.9) 05/31/24 23:05 Eos # (Auto) 0.6 10^3/uL (0.0-0.8) 05/31/24 23:05 Baso # (Auto) 0.1 10^3/uL (0.0-0.1) 05/31/24 23:05 Nucleated RBC % (auto) 0 % 05/31/24 23:05 Nucleated RBCs # 0.0 /100WBC 05/31/24 23:05 Sodium 138 mmol/L (136-145) 05/31/24 23:05 Potassium 4.2 mmol/L (3.5-5.1) 05/31/24 23:05 Chloride 104 mmol/L (98-107) 05/31/24 23:05 Carbon Dioxide 22 mmol/L (22-29) 05/31/24 23:05 Anion Gap 16.2 (5-19) 05/31/24 23:05 BUN 15 mg/dL (8-23) 05/31/24 23:05 Creatinine 0.8 mg/dL (0.7-1.2) 05/31/24 23:05 GFR Calculation 96.1 mL/min (90-130) 05/31/24 23:05 Glucose 110 mg/dL (65-115) 05/31/24 23:05 Calculated Osmolality 287 mOsm/kg (285-295) 05/31/24 23:05 Calcium 9.2 mg/dL (8.5-10.5) 05/31/24 23:05 Troponin T Baseline 9 ng/L (0-15) 05/31/24 23:05 Troponin T 120 Minute 7.90 ng/L (0-15) 06/01/24 02:35 Delta Troponin T -1.10 ABS# (0-10) L 06/01/24 02:35 Troponin T Hi Sens 6Hr 9.55 ng/L (0-15) 06/01/24 05:00 Troponin T Hi Sens 6Hr Delta 0.55 ng/L (0-12) 06/01/24 05:00 All radiology interpretation(s) finalized by discharge Discharge Plan Discharge Patient Disposition: Placed in Observation Clinical Impression: Chest pain Condition: Stable Prescriptions: No Action albuterol sulfate 90 mcg/actuation aerosol powdr breath activated 2 inh inhalation Q6H PRN (Reason: shortness of breath or wheezing) Qty: 1 3RF nitroglycerin 0.4 mg tablet, sublingual 0.4 mg sublingual Q5M PRN (Reason: chest pain) Qty: 25 1RF Rx Instructions: do not exceed 3 doses per episode atorvastatin 40 mg tablet 80 mg PO BEDTIME Qty: 120 4RF isosorbide mononitrate 30 mg tablet extended release 24 hr 30 mg PO BID Qty: 180 2RF clopidogrel 75 mg Tablet 75 mg PO DAILY Qty: 90 4RF aspirin 81 mg Tablet,Delayed Release (Dr/Ec) 81 mg PO DAILY Qty: 90 4RF lisinopril 5 mg Tablet 5 mg PO DAILY Qty: 90 3RF fenofibrate nanocrystallized 145 mg Tablet 145 mg PO DAILY Qty: 90 4RF Referrals: Hui Jolly DO [Primary Care Provider] - Print Language: Macedonian Coding Level of Care Code ED Food Counter Worker for Ayleen Leonardo
[2024-06-01 05:23] LABS: Troponin 5 6HR 9.55 ng/L (0-15); Troponin 5 6HR Delta 0.55 ng/L (0-12)
--- NOTE | 2024-06-01 07:04 | PM.HP ---
Providers/Chief Complaint Admitting Physician: Tari Hammer MD Primary Care Provider: Hui Jolly DO Chief Complaint: CP History of Present Illness Kiersten Sibley is a 69 year old male with established coronary disease since 1999, recently had 2 stents in LAD 4 months ago, presented with worsening of chest pain. Patient is stating that he had a stress test done outpatient and was recommended to go for angiogram on Sunday but secondary to worsening of symptoms he presented to the ER. Troponin without any significant elevation, EKG not showing any active infarctive changes. I have notified Dr. Montanez Patient is stating that he is well aware that he had angiogram planned for Sunday but his chest pain got worse on Sunday, in total he took 8 nitroglycerin pills without significant [place], he has been describing his chest discomfort as dull constant pain which would last longer than before, associated with shortness of breath, not associated with nausea or vomiting. Patient still continues to smoke unfortunately, lives alone. Review of Systems Const: Denies: fever(s) Eyes: Denies: change in vision ENMT: Denies: throat pain Card: Reports: chest pain Resp: Reports: dyspnea GI: Denies: abdominal pain : Denies: flank pain Musc: Denies: neck pain Medications/Allergies Home Medications ?Medication ?Instructions ?Recorded ?Confirmed ?Last Taken ?Type aspirin 81 mg tablet,delayed 81 mg PO DAILY #90 tabs 02/11/24 04/28/24 Unknown Rx release clopidogrel 75 mg tablet 75 mg PO DAILY #90 tabs 02/11/24 04/28/24 Unknown Rx fenofibrate nanocrystallized 145 145 mg PO DAILY #90 tabs 02/11/24 04/28/24 Unknown Rx mg tablet lisinopril 5 mg tablet 5 mg PO DAILY #90 tabs 02/11/24 04/28/24 Unknown Rx nitroglycerin 0.4 mg sublingual 0.4 mg sublingual Q5M PRN chest 02/26/24 04/28/24 Unknown Rx tablet pain #25 tabs atorvastatin 40 mg tablet 80 mg (2 x 40 mg) PO BEDTIME #120 04/14/24 04/28/24 Unknown Rx tabs isosorbide mononitrate 30 mg 30 mg PO BID #180 tabs 04/14/24 04/28/24 Unknown Rx tablet,extended release 24 hr albuterol sulfate 90 mcg/actuation 2 inh inhalation Q6H PRN shortness 04/28/24 04/28/24 Unknown Rx breath activated powder inhaler of breath or wheezing #1 ea Allergies Allergy/AdvReac Type Severity Reaction Status Date / Time No Known Allergies Allergy Verified 04/28/24 14:57 PFSH Acute PFSH: Medical History Chest pain Coronary artery disease HTN (hypertension) Hyperlipidemia with target LDL less than 70 Bradycardia JOSÉ LUIS (generalized anxiety disorder) Hyperlipidemia Social History Smoking and tobacco/nicotine status: current every day tobacco/nicotine user cigarettes Packs smoked per day: 1 Years cigarettes smoked: 10 Second hand smoke exposure: Yes Alcohol intake: never Substance/Drug Use: never Vitals/I&O/Wt Last Vital Signs Temp 97.8 F 05/31/24 22:23 Pulse 67 05/31/24 22:23 Resp 16 05/31/24 22:23 BP 133/69 05/31/24 22:23 Pulse Ox 97 05/31/24 22:23 O2 Del Method Room Air 05/31/24 22:23 05/31/24 06/01/24 06/01/24 22:59 06:59 14:59 Intake Total 0 / 0 Balance 0 / 0 Weight last 48 hrs Weight 69.853 kg Physical Exam Narrative: Pleasant cooperative S1, S2 Currently on room air Abdomen soft Hemodynamically stable Nonfocal neuroexam No active distress AO. x 4 GCS 15 No active focal deficit Clinically looks dehydrated Chest discomfort 2/10 Multiple cholesteatoma Data 05/31/24 23:05 05/31/24 23:05 A&P Assessment and plan (1) HTN (hypertension): Qualifiers: Hypertension type: primary hypertension Qualified Code(s): I10 - Essential (primary) hypertension (2) Coronary artery disease: Qualifiers: Coronary Disease-Associated Artery/Lesion type: [place] artery [place] vs. transplanted heart: [place] heart Associated angina: without angina Qualified Code(s): I25.10 - Atherosclerotic heart disease of [place] coronary artery without angina pectoris (3) Chest pain: Qualifiers: Chest pain type: precordial pain Qualified Code(s): R07.2 - Precordial pain (4) Hyperlipidemia: Qualifiers: Hyperlipidemia type: pure hypertriglyceridemia Qualified Code(s): E78.1 - Pure hyperglyceridemia Plan Unstable angina EKG without ischemic or infarctive changes Request D-dimer Endorsing constant dull chest discomfort 06/02 Troponin without significant ulcer Recently had stress test outpatient Patient was scheduled for coronary angiogram 7:30 AM on Friday 06/02 Dr. Montanez notified and consulted I will keep patient n.p.o. until evaluated by cardiology Would use morphine as analgesia along continuation of aspirin, Plavix and statins Continue Imdur and lisinopril Currently patient is on room air with stable hemodynamics Full code DVT prophylaxis: Lovenox PDMP PDMP Reviewed: Not Reviewed Attestations Medical Necessity Statement*: Anticipating angiogram and then discharge after 24 to 48 hours Diagnoses Primary hypertension I10 Hypertension type: primary hypertension Coronary artery disease involving [place] coronary artery of [place] heart without angina pectoris I25.10 Coronary Disease-Associated Artery/Lesion type: [place] artery [place] vs. transplanted heart: [place] heart Associated angina: without angina Precordial pain R07.2 Chest pain type: precordial pain Pure hypertriglyceridemia E78.1 Hyperlipidemia type: pure hypertriglyceridemia
[2024-06-01 08:03] LABS: D Dimer 0.47 ug/mLFEU (0-0.59)
--- NOTE | 2024-06-01 08:06 | USCV_ITS ---
Kiersten Sibley Age: 69 Gender: M : 1955 Exam Date: 06/01/2024 16:38 Ordering Phys: Christopher Boyce MD Technologist: Jose Moy Exam Location: [facility] [place] Indication: chest pain BP: 129 / 52 HR: 52 Rhythm: Sinus Technical Quality: Adequate MEASUREMENTS (Male / Female) Normal Values 2D ECHO LV Diastolic Diameter PLAX 5.1 cm 4.2 - 5.9 / 3.9 - 5.3 cm IVS Diastolic Thickness 1.1 cm 0.6 - 1.0 / 0.6 - 0.9 cm IVS Systolic Thickness 1.3 cm LVPW Diastolic Thickness 1.3 cm 0.6 - 1.0 / 0.6 - 0.9 cm LVPW Systolic Thickness 1.8 cm LVOT Diameter 2.0 cm LV Ejection Fraction 2D Teich 65.1 % LV Ejection Fraction MOD 4C 64.4 % LV Ejection Fraction MOD 2C 69.6 % LV Ejection Fraction 2C AL 69.4 % RA Systolic Volume 4C AL 50.0 ml RA Systolic Volume 4C MOD 49.8 ml LA Sys Volume AL 48.4 cm cubed LA Sys Volume Index AL 26.7 cm cubed/m squared Aorta at Sinotubular Diameter 2.6 cm IVC Diameter 1.5 cm M-MODE LA Ao Ratio MM 1.3 AV Cusp Separation MM 1.2 cm DOPPLER AV Peak Velocity 277.0 cm/s LVOT Peak Velocity 103.0 cm/s AV Area Cont Eq vti 1.9 cm squared AV Area Cont Eq pk 1.2 cm squared MV Peak Velocity 80.0 cm/s MV Area PHT 4.1 cm squared Mitral E to A Ratio 0.9 TV Peak Velocity 318.0 cm/s TR Peak Velocity 326.0 cm/s TR Peak Gradient 42.5 mmHg TR Mean Velocity 262.0 cm/s TR Mean Gradient 29.3 mmHg TR Velocity Time Integral 99.7 cm PV Peak Velocity 95.0 cm/s RV Ejection Time 0.3 s FINDINGS Left Ventricle Normal left ventricular size, systolic function and wall thickness, with no regional wall motion abnormalities. Left ventricular ejection fraction is estimated at 60%. Grade I/IV diastolic dysfunction (abnormal relaxation filling pattern), normal to mildly elevated filling pressures. Right Ventricle The right ventricle is normal in size and function. Right Atrium The right atrium is normal in size. Left Atrium The left atrium is normal in size. Mitral Valve Structurally normal mitral valve without significant stenosis or prolapse. There is no mitral regurgitation. Aortic Valve Moderate aortic valve calcification. Mild aortic valve stenosis, mean gradient 7.2 mmHg, MAXIME 1.9 cm squared. [id number]-hccupfrw aortic valve regurgitation. Tricuspid Valve Structurally normal tricuspid valve without significant stenosis or regurgitation. Pulmonic Valve Structurally normal pulmonic valve without significant stenosis. There is no pulmonic regurgitation. Pericardium Normal pericardium without effusion. Aorta Normal ascending aorta dimension. IVC The inferior vena cava appears normal. CONCLUSIONS Normal left ventricular size, systolic function and wall thickness, with no regional wall motion abnormalities. Left ventricular ejection fraction is estimated at 60%. Grade I/IV diastolic dysfunction (abnormal relaxation filling pattern), normal to mildly elevated filling pressures. Moderate aortic valve calcification. Mild aortic valve stenosis, mean gradient 7.2 mmHg, MAXIME 1.9 cm squared. [id number] aortic valve regurgitation. There is no pericardial effusion. Right atrial pressure is around 5 mm of mercury. Tari Davenport MD (Electronically Signed) Final Date: 01 June 2024 19:03 S
[2024-06-01] MEDS: lisinopril 5 mg Tablet PO (08:40)
[2024-06-01] MEDS: fenofibrate 145 mg Tablet PO (08:40)
[2024-06-01] MEDS: aspirin 81 mg EC Tablet PO (08:41)
[2024-06-01] MEDS: clopidogrel 75 mg Tablet PO (08:41)
[2024-06-01] MEDS: heparin 5,000 unit/mL INJ 1 mL IVP (08:46)
[2024-06-01] MEDS: heparin drip 25,000 UNIT/500 ML PREMIX 27.94 UNIT IV (08:51)
[2024-06-01 08:55] LABS: Troponin(5th) Baseline 10 ng/L (0-15)
[2024-06-01] MEDS: nitroglycerin drip 50 MG/250 ML PREMIX IV (09:05)
--- NOTE | 2024-06-01 10:02 | P.PN_ITS ---
Vitals/I&O/Wt Last Vital Signs Temp 97.8 F 05/31/24 22:23 Pulse 67 05/31/24 22:23 Resp 16 05/31/24 22:23 BP 133/69 05/31/24 22:23 Pulse Ox 97 05/31/24 22:23 O2 Del Method Room Air 06/01/24 06:08 05/31/24 06/01/24 06/01/24 22:59 06:59 14:59 Intake Total 0 / 0 Balance 0 / 0 Weight last 48 hrs Weight 69.853 kg Physical Exam 2 Const: COMMON NORMALS: no acute distress and patient oriented x3 Resp: COMMON NORMALS: normal respiratory effort, No retractions, No use of accessory muscles and clear to auscultation bilaterally AUSCULTATION: clear to auscultation bilaterally Cardio: COMMON NORMALS: regular rate, regular rhythm, S1 normal heart sound present and S2 normal heart sound present RATE: regular rate RHYTHM: r egular rhythm HEART SOUNDS: S1 normal heart sound present and S2 normal heart sound present GI: COMMON NORMALS: Normal to inspection, nondistended, normoactive bowel sounds present and non-tender Extremity: COMMON NORMALS: no pedal edema Neuro: COMMON NORMALS: patient oriented x3 Data 05/31/24 23:05 05/31/24 23:05 A&P Assessment and plan (1) HTN (hypertension): Qualifiers: Hypertension type: primary hypertension Qualified Code(s): I10 - Essential (primary) hypertension (2) Coronary artery disease: Qualifiers: Associated angina: without angina Coronary Disease-Associated Artery/Lesion type: [place] artery [place] vs. transplanted heart: [place] heart Qualified Code(s): I25.10 - Atherosclerotic heart disease of [place] coronary artery without angina pectoris (3) Chest pain: Qualifiers: Chest pain type: precordial pain Qualified Code(s): R07.2 - Precordial pain (4) Hyperlipidemia: Qualifiers: Hyperlipidemia type: pure hypertriglyceridemia Qualified Code(s): E78.1 - Pure hyperglyceridemia Plan Unstable angina EKG without ischemic or infarctive changes D-dimer within normal limits Chest pain 6 out of 10 this morning Repeat troponin series this morning Recently had stress test outpatient 05/21/2024 IMPRESSIONS Large area of moderate to severe reversibility noted in basal to distal inferolateral basal to distal inferior inferoseptal and basal to distal anteroseptal wall suggestive of moderate to severe ischemia in all 3 vessel territories including LAD circumflex and RCA. This is an abnormal stress test further exploration if clinically indicated with invasive modality may need to be considered. Coronary angiogram 02/10/2024 Conclusions 1. There is total occlusion coronary artery disease with three vessel disease. 2. Normal left ventricular systolic function. Ejection fraction of 55%. 3. Mid Left Anterior Descending to Distal Left Anterior Descending was treated with a Balloon, Drug Eluting Stent, and Balloon. 4. 2nd Diagonal was treated with a Balloon. Patient was scheduled for coronary angiogram 7:30 AM on Friday 06/02 Dr. Davenport notified and consulted N.p.o. 06/02/2023 Heparin drip Nitroglycerin drip Would use morphine as analgesia along continuation of aspirin, Plavix and statins Continue Imdur and lisinopril Currently patient is on room air with stable hemodynamics Full code DVT prophylaxis: Heparin drip PDMP PDMP Reviewed: Not Reviewed Attestations 2 Medical Necessity Statement*: Patient requires hospitalization for unstable angina, recurrent cardiology consultation, cardiac catheterization Diagnoses Primary hypertension I10 Hypertension type: primary hypertension Coronary artery disease involving [place] coronary artery of [place] heart without angina pectoris I25.10 Associated angina: without angina Coronary Disease-Associated Artery/Lesion type: [place] artery [place] vs. transplanted heart: [place] heart Precordial pain R07.2 Chest pain type: precordial pain Pure hypertriglyceridemia E78.1 Hyperlipidemia type: pure hypertriglyceridemia
--- NOTE | 2024-06-01 11:06 | ECG_ITS ---
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
[2024-06-01 11:08] LABS: Troponin 5 2HR 9.12 ng/L (0-15); Troponin 5 2HR Delta -0.88 ABS# (0-10)
--- NOTE | 2024-06-01 14:07 | ECG_ITS ---
[facility] Test Date: 2024-06-01 Pat Name: Kiersten Sibley Department: Room: ED Gender: Male Assistant Case Manager: : 1955 Requested By: Christopher Boyce Order Number: [id number] Reading MD: URIAH FRAIRE Measurements Intervals [place] Rate: 49 P: 50 [place]: 154 QRS: 49 QRSD: 94 T: 46 QT: 402 QTc: 364 Interpretive Statements SINUS BRADYCARDIA INTERPRETATION BASED ON A DEFAULT AGE OF 40 YEARS Compared to ECG 06/01/2024 11:06:32 No significant changes Electronically Signed On 06-01-2024 21:05:55 MEDIA CONSULTANT by URIAH FRAIRE [email or web address]
[2024-06-01 15:12] LABS: INR 0.98 (0.8-1.2)
[2024-06-01 15:18] LABS: Troponin 5 6HR 8.75 ng/L (0-15); Troponin 5 6HR Delta -1.25 ng/L (0-12)
[2024-06-01 15:31] LABS: Partial Thromboplastin Time > 250.0 SECONDS (23.9-36.7)
--- NOTE | 2024-06-01 15:36 | PC.NURSE ---
Spoke with Dr. Boyce regarding patient's 6 hour followup PTT, he gave verbal orders to hold the heparin drip and recheck his PTT in 4 hours.
--- NOTE | 2024-06-01 18:16 | PM.CONSULT ---
Providers/Reason For Consult Consulting Physician/Specialty*: Tari Davenport MD Reason for Consult*: Dr. Boyce Attending Physician: Christopher Boyce MD Primary Care Provider: Hui Jolly DO History of Present Illness History of Present Illness Kiersten Sibley is a 69 year old male past medical history significant for coronary artery disease history of stent to mid LAD in January 2024 when it was done patient has multivessel disease including chronically occluded RCA and circumflex RCA was collateralized through LAD. LAD was then treated with drug-eluting stent, it was also noticed that patient has proximal 40 to 50% nonobstructive lesion of LAD, 2 diagonal branches are moderate size and caliber second 1 has ostial disease. Left ventricular ejection fraction well-preserved. Over the next few months patient did fine however for the past couple of months patient has been noticing worsening of shortness of breath chest pain on [id number]-[id number] exertion which was becoming more frequent. He underwent stress test which showed severe ischemia in all 3 vessels, he was scheduled to undergo left heart catheterization within this week but he started noticing chest pain increasing in frequency and duration requiring multiple nitroglycerins, therefore he decided to come to the ER. Currently he is on heparin and nitro drip. Appear to be stable. EKG does not show ongoing ischemia. He was ruled out for acute coronary syndrome. Review of Systems Const: Denies: fever(s) Eyes: Denies: change in vision or photophobia ENMT: Denies: throat pain or enlarged tonsils Card: Reports: chest pain Resp: Reports: dyspnea GI: Denies: abdominal pain : Denies: flank pain Musc: Denies: neck pain or joint warmth Medications/Allergies Home Medications ?Medication ?Instructions ?Recorded ?Confirmed ?Last Taken ?Type aspirin 81 mg tablet,delayed 81 mg PO DAILY #90 tabs 02/11/24 06/01/24 Unknown Rx release clopidogrel 75 mg tablet 75 mg PO DAILY #90 tabs 02/11/24 06/01/24 Unknown Rx fenofibrate nanocrystallized 145 145 mg PO DAILY #90 tabs 02/11/24 06/01/24 Unknown Rx mg tablet lisinopril 5 mg tablet 5 mg PO DAILY #90 tabs 02/11/24 06/01/24 Unknown Rx nitroglycerin 0.4 mg sublingual 0.4 mg sublingual Q5M PRN chest 02/26/24 06/01/24 Unknown Rx tablet pain #25 tabs isosorbide mononitrate 30 mg 30 mg PO BID #180 tabs 04/14/24 06/01/24 Unknown Rx tablet,extended release 24 hr albuterol sulfate 90 mcg/actuation 2 inh inhalation Q6H PRN shortness 04/28/24 06/01/24 Unknown Rx breath activated powder inhaler of breath or wheezing #1 ea atorvastatin 80 mg tablet 80 mg PO QPM 06/01/24 06/01/24 Unknown History Allergies Allergy/AdvReac Type Severity Reaction Status Date / Time No Known Allergies Allergy Verified 04/28/24 14:57 Current Medications Generic Name Dose Route Start Last Admin Trade Name Freq PRN Reason Stop Dose Admin Aspirin 81 mg 06/01/24 09:00 06/01/24 08:41 Aspirin 81 Mg Ec Tablet PO 81 mg DAILY FAINA Administration Clopidogrel Bisulfate 75 mg 06/01/24 09:00 06/01/24 08:41 Clopidogrel 75 Mg Tablet PO 75 mg DAILY FAINA Administration Fenofibrate 145 mg 06/01/24 09:00 06/01/24 08:40 Fenofibrate 145 Mg Tablet PO 145 mg DAILY FAINA Administration Nitroglycerin/Dextrose 50 mg in 250 mls @ 0 mls/hr 06/01/24 08:15 06/01/24 09:05 Nitroglycerin Drip IV 5 mcg/min .Q0M FAINA 1.5 mls/hr Administration Protocol Per Protocol Heparin Sodium/Sodium Chloride 25,000 unit in 500 mls @ 0 mls/hr 06/01/24 08:15 06/01/24 15:37 Heparin Drip IV 0 unit/kg/hr CONT FAINA 0 mls/hr Titration Protocol Per Protocol Lisinopril 5 mg 06/01/24 09:00 06/01/24 08:40 Lisinopril 5 Mg Tablet PO 5 mg DAILY FAINA Administration PFSH Acute PFSH: Medical History (Updated 06/01/24 @ 18:33 by Tari Davenport MD) Multi-vessel coronary artery stenosis Chest pain Coronary artery disease HTN (hypertension) Hyperlipidemia with target LDL less than 70 Bradycardia JOSÉ LUIS (generalized anxiety disorder) Hyperlipidemia Social History Smoking and tobacco/nicotine status: current every day tobacco/nicotine user cigarettes Packs smoked per day: 1 Years cigarettes smoked: 10 Second hand smoke exposure: Yes Alcohol intake: never Substance/Drug Use: never Dietary Habits: Current diet type/program: regular Caffeine: Yes Vitals/I&O/Wt Last Vital Signs Temp 97.8 F 05/31/24 22:23 Pulse 54 L 06/01/24 17:30 Resp 17 06/01/24 17:30 BP 140/52 06/01/24 17:30 Pulse Ox 97 06/01/24 17:00 O2 Del Method Room Air 06/01/24 10:21 06/01/24 06/01/24 06/01/24 06:59 14:59 22:59 Intake Total 189.061 / 189.061 Balance 189.061 / 189.061 Weight last 48 hrs Weight 154 lb Physical Exam Const: OTHER: GENERAL: Patient is alert, awake and oriented x3. HEART: Regular S1 and S2. No murmur, rub or gallop. LUNGS: Clear to auscultate bilaterally. CENTRAL NERVOUS SYSTEM: Grossly nonfocal. EXTREMITIES: Lower extremities with out edema bilaterally. Data 05/31/24 23:05 05/31/24 23:05 A&P Assessment and plan (1) Chest pain: Qualifiers: Chest pain type: precordial pain Qualified Code(s): R07.2 - Precordial pain (2) Multi-vessel coronary artery stenosis: (3) Hyperlipidemia: Qualifiers: Hyperlipidemia type: pure hypertriglyceridemia Qualified Code(s): E78.1 - Pure hyperglyceridemia (4) HTN (hypertension): Qualifiers: Hypertension type: primary hypertension Qualified Code(s): I10 - Essential (primary) hypertension (5) Abnormal stress test: Plan Given history of multivessel coronary artery disease, presentation consistent with unstable angina and abnormal stress test patient is high risk for acute coronary syndrome therefore we will admit him to the hospital under hospitalist service and proceed with left heart catheterization in the morning. Continue aspirin statin, patient is not on beta-meli due to history of bradycardia Continue SCOTTY inhibitor for blood pressure control Continue IV nitroglycerin Continue IV heparin as per protocol Continue Plavix Echocardiogram result is pending Further plan will be devised as per progress the patient N.p.o. after midnight PDMP PDMP Reviewed: Not Reviewed Consult Attestations Medical Necessity Statement: I am expecting his stay to cross more than 2 midnights Coding Level of Care Code Acute Code for Chg Fwd Diagnoses Precordial pain R07.2 Chest pain type: precordial pain Multi-vessel coronary artery stenosis I25.10 Pure hypertriglyceridemia E78.1 Hyperlipidemia type: pure hypertriglyceridemia Primary hypertension I10 Hypertension type: primary hypertension Abnormal stress test R94.39
[2024-06-01 19:19] LABS: Partial Thromboplastin Time 39.1 SECONDS (23.9-36.7)
--- NOTE | 2024-06-01 21:47 | PC.NURSE ---
THIS NURSE RECEIVED APTT LEVEL OF 39.1. I CONTACTED ABOUT DIRECTION OF HEPARIN DRIP. PER VERBAL ORDER, DECREASE BY 2 UNITS/KG/HR. THIS NURSE DOUBLE CHECKED WITH MELVIN CHEN AND SOLE CHARLES ABOUT NEW STARTING RATE. NEW RATE OF 18UNITS/KG/HR STARTED. PT DOSE RATE OF 21 ML/HR. DOUBLE CHECKED BY SOLERN AND APRILRN.
--- NOTE | 2024-06-01 21:56 | PC.NURSE ---
DURING SHIFT CHANGE REPORT, DAYSHIFT NURSE RELAYED TO THIS NURSE THAT NITRO WAS STARTED FOR CHEST PAIN AND RUNNING AT 5MCG/MIN. WHEN THIS NURSE ASKED ABOUT PROTOCOL, NURSE REPORTS SHE STARTED IN AT 5MCG/MIN. ER NOTIFIED. PRESSURES REMAIN STABLE AND PATIENT DENIES CHEST PAIN AT THIS TIME.
--- NOTE | 2024-06-01 22:07 | PC.NURSE ---
THIS NURSE RECEIVED APTT LEVEL OF 39.1. I CONTACTED ABOUT DIRECTION OF HEPARIN DRIP. PER VERBAL ORDER, DECREASE BY 2 UNITS/KG/HR. THIS NURSE DOUBLE CHECKED WITH MELVIN CHEN AND SOLE CHARLES ABOUT NEW STARTING RATE. NEW DOSE RATE OF 18UNITS/KG/HR STARTED. PT INFUSION RATE OF 25.15 ML/HR. DOUBLE CHECKED BY MELVIN WHIPPLE AND MELVIN CHEN.
--- NOTE | 2024-06-01 22:08 | PC.NURSE ---
DURING SHIFT CHANGE REPORT, DAYSHIFT NURSE INFORMED THIS NURSE NITRO DRIP STARTED AND RUNNING AT 5MCG/MIN. WHEN ASKED ABOUT PROTOCOL FOR CHEST PAIN, NURSE STATED SHE STARTED DRIP AT 5MCG/MIN. ER PHYSICIAN NOTIFIED. PATIENTS PRESSURES HAVE BEEN STABLE AND PATIENT IS NOT C/O CHEST PAIN AT THIS TIME.
[2024-06-02] VITALS (89 sets, daily range): BP systolic 99–144; BP diastolic 39–78; PULSE 48–63; RESP 0–26; TEMP 36.8; O2SAT 86–98
[2024-06-02] MEDS: atorvastatin 40 mg Tablet 80 MG PO (01:02)
[2024-06-02 01:57] LABS: Basophils # 0.1 10^3/uL (0.0-0.1); Basophils % 0.7 %; Eosinophils # 0.5 10^3/uL (0.0-0.8); Eosinophils % 6.6 %; Hematocrit 35.3 % (37-53); Lymphocytes # 3.3 10^3/uL (0.8-4.8); Lymphocytes % 44.1 %; Mean Corpuscular HGB Conc 33.7 g/dL (30-55); Mean Corpuscular Hemoglobin 30.6 pg (27-33); Mean Corpuscular Volume 90.7 fl (82-101); Mean Platelet Volume 10.5 fL (7.4-10.4); Monocytes # 0.8 10^3/uL (0.2-0.9); Monocytes % 10.9 %; Neutrophils # 2.81 10^3/uL (1.8-7.7); Neutrophils % 37.6 %; Nucleated Red Blood Cells % 0 %; Platelet Count 230 10^3/cmm (157-399); Red Blood Count 3.89 10^6/uL (3.85-5.65); Red Cell Distribution Width 13.9 % (12.1-15.1); White Blood Count 7.46 10^3/uL (3.29-11.43)
[2024-06-02 02:15] LABS: Blood Urea Nitrogen 13 mg/dL (8-23); Calcium 9.3 mg/dL (8.5-10.5); Carbon Dioxide 22 mmol/L (22-29); Chloride 103 mmol/L (98-107); Creatinine Clr Calc Pharmacy 82.7765; Glomerular Filtration Rate 96.1 mL/min (90-130); Glucose 88 mg/dL (65-115); Osmolality Calculated 282 mOsm/kg (285-295); Sodium 136 mmol/L (136-145)
[2024-06-02 02:21] LABS: Partial Thromboplastin Time 111.9 SECONDS (23.9-36.7)
--- NOTE | 2024-06-02 02:37 | PC.NURSE ---
PT NURSE CONTACTED ABOUT PTT OF 111.9. PER PROTOCOL, DECREASE RATE BY 3 UNITS/KG/HR AND NO BOLUS. MD VERBALIZED THE SAME.
--- NOTE | 2024-06-02 02:43 | PC.NURSE ---
PATIENT HEPARIN DRIP DECREASED BY 3 UNITS/KG/ML. PATIENT PUMP NOW RUNNING AT DOSE RATE OF 15 UNITS/KG/HR AND INFUSION RATE OF 21ML/HR. MELVIN WHIPPLE VERIFIED PUMP WITH THIS NURSE.
[2024-06-02] MEDS: morphine 4 mg/mL SDV 1 mL 2 MG IVP ×2 (05:34→21:32)
--- NOTE | 2024-06-02 05:34 | ECG_ITS ---
[facility] Test Date: 2024-06-02 Pat Name: Kiersten Sibley Department: Room: 108 Gender: Male Clam Dredger: : 1955 Requested By: aMnan Chadwick Order Number: [id number] Slick MD: Tan Jimenez M.D. Measurements Intervals [place] Rate: 51 P: 60 NE: 169 QRS: 43 QRSD: 85 T: 40 QT: 418 QTc: 385 Interpretive Statements SINUS BRADYCARDIA MODERATE ST DEPRESSION [0.05+ mV ST DEPRESSION] Compared to ECG 06/01/2024 16:17:12 ST (T wave) deviation now present Electronically Signed On 06-04-2024 18:24:21 HOUSE DIRECTOR by Tan Jimenez M.D. [email or web address]
--- NOTE | 2024-06-02 08:32 | XACV_ITS ---
Ht: 168 cm Wt: 71 kg BSA: 1.83 m2 Gender: Male : 1955 Any Known Allergies: No known allergies Exam Priority: Routine Procedure(s): Procedure Description: Diagnostic procedure Procedure Description: Left Heart Catheterization Procedure Description: Left ventriculography Procedure Description: Miscellaneous Procedure Description: ACT Procedure Description: Coronary Angiography Diagnostic Cath Status: Urgent Diagnostic Findings * Left Main has luminal irregularity without significant stenosis. * Proximal Left Anterior Descending: severe 90% stenosis, ALPESH: 3 flow. * Distal Left Anterior Descending collaterallization. * Proximal Right Coronary Artery: total occlusion, ALPESH: 0 flow. * Proximal Right Coronary Artery to Proximal Circumflex collaterallization. * Proximal Circumflex: total occlusion, ALPESH: 3 flow, diffuse. * Coronary angiography shows right dominance. Conclusions 1. There is total occlusion coronary artery disease with three vessel disease. 2. All salas are normal. 3. Normal left ventricular systolic function. Ejection fraction of 60%. Recommendations * 1-Return to [facility] for close monitoring and routine PCI care 2-Continue IV heparin drip as per ACS protocol 3-Hold Plavix for possible CABG 4-Statin with LDL goal of 70 mg/dl, aspirin 81 mg p.o. daily for life long 5-CT surgery consults for CABG 6-Optimal medical management for [place] 7-Follow up with Dr. Davenport in four weeks and establish care with primary care physician. Diagnostic RX Recommendation: CABG LV EDP: 7 mmHg Ventriculography Ejection Fraction: 60.0 % Pressures Phase:Rest AO : 108 / 54 ( 73 ) @ 9:47:00 AM 109 / 54 ( 72 ) @ 10:18:00 AM 118 / 43 ( 69 ) @ 10:35:00 AM 116 / 43 ( 69 ) @ 10:35:00 AM LV : 115 / -13 / 7 @ 10:34:00 AM 118 / -11 / 7 @ 10:35:00 AM 119 / -11 / 7 @ 10:35:00 AM Valves Phase:DefaultPhase AV : 0.0 @ 11:22:22 AM AV Mean Gradient: 0.0 @ 11:22:22 AM Clinical Evaluation EBL: 5mL-10mL Procedural Details Pre-Procedure Time Out. Identified patient by full name and date of as verbalized by the patient/guarantor. Does the consent match the physician's order: Yes. Accurate & Complete Informed Consent: Yes. Inpatient/Outpatient History & Physical on Chart: Yes. If H&P is completed, is and addenduem needed: No; If yes, is the addendum complete: N/A. Visualize and Verify Site with Patient/Guarantor: N/A. Relevant Radiology Images available: N/A. Pre-op teaching completed and patient verbalized understanding. The risks, benefits, and alternatives of sedation and/or procedure were discussed by physician. The patient agrees to continue. Procedure started. [facility] Clinical Fraility Score: 3: Managing Well. Molder Foam Rubber Indications: Unstable Angina. Chest Pain Symptom Assessment: Typical Angina Symptoms. Cardiovascular Instability: No. Correct patient, site and procedure confirmed by cath team. PERRLA. Strong, equal hand organ pipe voicer bilaterally. Lungs clear x 5 lobes. IV Site on Arrival: 18 gauge in the right anticubital. IV Site on Arrival: 20 gauge in the left anticubital. Pre Procedural Pulses: right radial was 2+. Oxygen started at 2liters/min via nasal canula. right groin was prepped with chloroprep then draped in the usual sterile fashion. right radial was prepped with chloroprep then draped in the usual sterile fashion. Baseline sample Acquired. HR: 51 BPM. Physician notified. Equipment: 6F - Radial. Cardiac Cath Pack. ACIST Manifold Kit Model BT 2000. Heparinized Saline (2 units/mL), 1000 mL bag. Physician arrived. Physician scrubbed in. Immediate Pre-Procedure Time Out. Correct Patient: Yes; Correct Procedure: Yes; Correct Site: Yes; Correct Patient Position: Yes; Correct Supplies: Yes; Dried Flammable Prep: Yes; Blood Products Available: N/A;. Lidocaine 1% infiltrated to the right radial. Arterial access obtained. A 5 niuean Darnell catheter in over wire. Unable to seat catheter using radial approach due to torturosity. Physician will move to femoral approach. A TR Band was successful obtaining hemostatsis at the Right Radial artery insertion site. Lidocaine 1% infiltrated to the right groin. Arterial access obtained with micropuncture set. A 5 niuean JL4 catheter in over wire. Unable to advance catheter. Catheter and wire out. Hand injection performed through the sheath. A 5 niuean JL4 catheter in over glidewire. Multiple views taken of left coronary artery. Catheter out. A 5 niuean JR4 catheter in over exchange wire. Wire out. Multiple views taken of right coronary artery. A 5 niuean Angled Pig catheter in over wire. EDP Sample taken: LV 115/-14,7; HR: 46 BPM; SpO2: 98%. LV gram performed in HOUSER @ 10 mL/second for a total of 30 mL. EDP Sample taken: LV 118/-12,7; HR: 46 BPM; SpO2: 98%. Pullback taken: LV 119/-12,7; AO 118/43(69); Mean: 0mmHg, Peak to Peak: 0mmHg, SEP: 11sec/min; HR: 46 BPM; SpO2: 99%. ACT drawn. Results 152 seconds. Therapeutic limits - pre-heparin administration 90-150 seconds and monitoring heparin during a vascular procedure >250 seconds. Physician scrubbed out. Post Procedure: Pulses reassessed and unchanged. PERRLA. Strong, equal hand organ pipe voicer bilaterally. No VTE prophylaxis required. Contrast type used: Visipaque 320 mgI/mL, 500 mL bottle. Complications: none. A Manual Compression was unsuccessful obtaining hemostatsis at the Right Femoral artery insertion site. Sheath(s) removed and manual pressure held until hemostasis was achieved. Sterile 4x4 and Op-site applied to the puncture site. No oozing or hematoma noted. Post sheath removal instructions were given and the patient verbalized understanding. Post-op diagnosis: multi vessel CAD. Medication's Wasted: Nitro = 49.8 mg. Medication's Wasted: Heparin = 1000 units. Medication's Wasted: Other = fentanyl 50 mcg. Estimated blood loss: 5mL-10mL. Responsiveness - Normal response to verbal stimuli; alert and oriented, PERRLA. Airway - Unaffected, no intervention required; spontaneous ventilation. Circulation: W/N/L, pulses unchanged. Nausea/Vomiting: No. Procedure completed. Patient transferred by bed to 1st floor. Catheter out. Catheter out. Vital chart was stopped. Access Site Site: Right Radial artery Sheath Size: 6 Fr Hemostasis Method: TR Band Hemostasis Success: Successful Site: Right Femoral artery Sheath Size: 6 Fr Hemostasis Method: Manual Compression Hemostasis Success: Unsuccessful Procedure Medications Start: 9:11 AM Stop: 9:11 AM Medication: Benadryl Amount: 25 mg Route: I.V. Start: 9:27 AM Stop: 9:27 AM Medication: Versed Amount: 1 mg Route: I.V. Start: 9:27 AM Stop: 9:27 AM Medication: Fentanyl Amount: 50 mcg Route: I.V. Start: 9:42 AM Stop: 9:42 AM Medication: Nitrogylcerin Amount: 200 mcg Route: I.A. Start: 10:03 AM Stop: 10:03 AM Medication: Versed Amount: 1 mg Route: I.Katharine Araya, the attending physician, have reviewed and verified all procedure medications. Yes, all medications given per verbal order History/Risk Factors Hypertension: Yes Dyslipidemia: Yes Peripheral Arterial Disease (PAD): No Myocardial Infarction ([place]): No Obesity: No Renal Disease: No Tobacco Use: Current/Recent(w/in 1 year) Prior Interventions PCI: Yes CABG: No Valve Surgery: No Date of PCI: 02/10/2024 Report Signatures Finalized by Tari Davenport MD on 06/02/2024 11:29 AM
--- NOTE | 2024-06-02 09:31 | W.PM.OPSUD ---
Surgery/Procedure H&P Update DATE OF PROCEDURE: June 02, 2024 DATE H&P PERFORMED: 06/01/24 H&P UPDATE INFORMATION: I have reviewed H&P completed within last 30 days, I have examined patient prior to procedure and No changes to prior documentation PREOP DIAGNOSIS: Unstable angina PLANNED PROCEDURE: Left heart cath/PCI if indicated PATIENT REASSESSED PRIOR TO SEDATION, WITH NO CHANGE NOTED: Yes PHYSICAL EXAM: alert, oriented x 3, clear to auscultation bilaterally, regular rate & rhythm and operative site marked AIRWAY EVAL/ANESTHESIA PLAN: ASA II, Risks, benefits & alternatives of sedation and/or procedure discussed and Patient agrees to continue as planned ADDITIONAL INFORMATION: Patient has been explained all risk-benefit and alternatives of the procedure. Patient understand 2% risk of stroke major bleed urgent emergent bypass or vascular surgery. Patient understands expected risk of contrast-induced nephropathy hematoma bruising. He would like to proceed with it.
--- NOTE | 2024-06-02 09:46 | PC.CHAP ---
Pastoral Care Encounter/Spiritual Assessment Type of Contact [] Declined signal and communications maintainer visit [] Patient/Family/Request visit [] Outpatient visit [] Follow-up visit [] Physician referral [] Code/Alert [x] Routine visit [] Staff referral [] Actively dying [] Patient sleeping [] Family support [] [x] Out of room [] Palliative care [] [] Receiving care in room [] Pre-surgical visit [] Trauma [] Long length of stay [] ICU visit [] Other: Relational/Emotional Strength [] Patient feels connected with others/family/visitors/staff [] Distress [] Loneliness/isolation [] Abandonment Spirituality of Patient [] Person of Mercedes [] Attends Church of their [employer] [] Believes in Prayer [] Reads Bible or Gnosticist materials [] There are Spiritual issues to be addressed Campus Police Officer Interventions [x] Prayer [] Active listening [] Non-anxious presence [] Spiritual/emotional support [] Crisis/trauma care [] Spiritual counseling [] Bereavement support [] Provided bereavement packet [] Provided Bible/devotional materials [] Provided toy/stuffed animal, coloring book to patient or family member [] Provided Communion [] Anointing/[place] [] Salvation [] Completed spiritual assessment [] Other: Impact on Illness or Injury [] Angry [] Fearful [] Anxious [] Often cries [] Exhaustion [] Unable to work [] Unable to attend mormonism [] Unable to walk/stand [] Unable to read [] Unable to drive [] Unable to eat/drink [] Unable to sleep [] Unable to be with family [] Patient intubated [] Other: Summary Time spent with patient
--- NOTE | 2024-06-02 11:03 | P.PCN_ITS ---
Procedure Note: Date of procedure: 06/02/24 Pre-procedure diagnosis: Unstable angina, abnormal stress test, coronary artery disease Post-procedure diagnosis: same Procedure: Left heart catheterization was performed: Left main has luminal irregularities, proximal LAD has high-grade 90% stenosis, circumflex artery is 100% occluded fills through atrial branch from RCA. RCA is 100% occluded in the proximal segment fills through distal LAD. LAD has patent previously placed mid stent. Left ventricular ejection fraction appeared to be normal 60%, left ventricle end-diastolic pressure 7 mmHg Plan: Hold Plavix, continue aspirin and statin, patient not on beta-meli because of bradycardia., Continue nitro drip Patient has been referred for bypass surgery, he has been accepted at [facility] awaiting bed. Surgeon at the [facility] is Dr. Prescott Coding Level of Care Code Acute Code for g Fwd
--- NOTE | 2024-06-02 11:07 | PM.PN ---
Subjective Subjective: Denies any chest pain patient underwent left heart catheterization noted to have multivessel coronary artery disease including proximal high-grade 90% LAD stenosis, patent previously placed mid LAD stent, chronically occluded left circumflex fills through recurrent atrial branch from the RCA. RCA is 100% chronically occluded with [id number] collaterals, collaterals coming from distal LAD. Left ventricular ejection fraction appeared to be normal 60% LVEDP is around 7 mmHg. Patient will be referred for coronary artery bypass surgery. At this point we will hold Plavix. Continue heparin after completing bedrest and continue nitroglycerin. Patient has been accepted at [facility] by CT surgery awaiting bed. Vitals/I&O/Wt Last Vital Signs Temp 97.8 F 05/31/24 22:23 Pulse 53 L 06/02/24 08:30 Resp 0 L 06/02/24 08:30 BP 103/56 06/02/24 08:30 Pulse Ox 93 06/02/24 08:30 O2 Del Method Room Air 06/02/24 10:00 06/01/24 06/02/24 06/02/24 22:59 06:59 14:59 Intake Total 189.061 / 189.061 152.996 / 342.057 Output Total 2500 / 2500 Balance 189.061 / 189.061 -2347.004 / -2157.943 Weight last 48 hrs Weight 154 lb Physical Exam Const: COMMON NORMALS: alert OTHER: GENERAL: Patient is alert, awake and oriented x3. HEART: Regular S1 and S2. No murmur, rub or gallop. LUNGS: Clear to auscultate bilaterally. CENTRAL NERVOUS SYSTEM: Grossly nonfocal. EXTREMITIES: Lower extremities with out edema bilaterally. Resp: COMMON NORMALS: clear to auscultation bilaterally AUSCULTATION: clear to auscultation bilaterally Neuro: SENSORIUM/ORIENTATION: Yes alert Data 06/02/24 01:52 06/02/24 01:52 A&P Assessment and plan (1) Chest pain: Qualifiers: Chest pain type: precordial pain Qualified Code(s): R07.2 - Precordial pain (2) Multi-vessel coronary artery stenosis: (3) Hyperlipidemia: Qualifiers: Hyperlipidemia type: pure hypertriglyceridemia Qualified Code(s): E78.1 - Pure hyperglyceridemia (4) HTN (hypertension): Qualifiers: Hypertension type: primary hypertension Qualified Code(s): I10 - Essential (primary) hypertension (5) Abnormal stress test: Plan Denies any chest pain patient underwent left heart catheterization noted to have multivessel coronary artery disease including proximal high-grade 90% LAD stenosis, patent previously placed mid LAD stent, chronically occluded left circumflex fills through recurrent atrial branch from the RCA. RCA is 100% chronically occluded with [id number] collaterals, collaterals coming from distal LAD. Left ventricular ejection fraction appeared to be normal 60% LVEDP is around 7 mmHg. Patient will be referred for coronary artery bypass surgery. At this point we will hold Plavix. Continue heparin after completing bedrest and continue nitroglycerin. Patient has been accepted at [facility] by CT surgery awaiting bed. Continue aspirin statin Continue heparin once complete bedrest after 5-hour of discontinuing the right common femoral artery sheath. Continue nitro drip Patient has been accepted at [facility] under Dr. Prescott, awaiting bed opening most likely will happen by tomorrow PDMP PDMP Reviewed: Not Reviewed Attestations Medical Necessity Statement*: I am expecting his stay to cross more than 2 midnights. Coding Level of Care Code Acute Code for Chg Fwd Diagnoses Precordial pain R07.2 Chest pain type: precordial pain Multi-vessel coronary artery stenosis I25.10 Pure hypertriglyceridemia E78.1 Hyperlipidemia type: pure hypertriglyceridemia Primary hypertension I10 Hypertension type: primary hypertension Abnormal stress test R94.39
--- NOTE | 2024-06-02 11:10 | PM.TDS ---
Transfer Summary Providers Date of Admission: 06/01/24 05:26 Date of Discharge/Transfer: 06/02/24 Attending Provider at Admission: Tari Hammer MD Attending Provider at Transfer: Jimmy Mckeon MD Consults: Cardiology: Dr. Montanez Primary Care Provider: Hui Jolly DO Transfer Plans: Anticipated date of transfer: 06/02/24. Diagnoses at Discharge Discharge Diagnosis (1) Chest pain: Status: Acute Qualifiers: Chest pain type: precordial pain Qualified Code(s): R07.2 - Precordial pain (2) Multi-vessel coronary artery stenosis: Status: Acute (3) Hyperlipidemia: Status: Acute Qualifiers: Hyperlipidemia type: pure hypertriglyceridemia Qualified Code(s): E78.1 - Pure hyperglyceridemia (4) HTN (hypertension): Status: Acute Qualifiers: Hypertension type: primary hypertension Qualified Code(s): I10 - Essential (primary) hypertension (5) Abnormal stress test: Status: Acute Reason for Visit Reason for Visit CP Brief History: History as per HPI: Kiersten Sibley is a 69 year old male with established coronary disease since 1999, recently had 2 stents in LAD 4 months ago, presented with worsening of chest pain. Patient is stating that he had a stress test done outpatient and was recommended to go for angiogram on Sunday but secondary to worsening of symptoms he presented to the ER. Troponin without any significant elevation, EKG not showing any active infarctive changes. I have notified Dr. Montanez Patient is stating that he is well aware that he had angiogram planned for Sunday but his chest pain got worse on Sunday, in total he took 8 nitroglycerin pills without significant Bruner, he has been describing his chest discomfort as dull constant pain which would last longer than before, associated with shortness of breath, not associated with nausea or vomiting. Patient still continues to smoke unfortunately, lives alone. Hospital Course Hospital Course Patient was admitted to the hospital further evaluation management of chest pain with concerns for non-ST elevation AR. He was started on anticoagulation with heparin drip. Cardiology was consulted. He underwent cardiac angiogram on 05/24 which showed Left main has luminal irregularities, proximal LAD has high-grade 90% stenosis, circumflex artery is 100% occluded fills through atrial branch from RCA. RCA is 100% occluded in the proximal segment fills through distal LAD. LAD has patent previously placed mid stent. Left ventricular ejection fraction appeared to be normal 60%, left ventricle end-diastolic pressure 7 mmHg. Patient was advised CABG as per cardiology recommendations. His case were discussed in detail with cardiothoracic surgeon at [facility] and has been transferred in hemodynamically stable condition under Dr. Avila for further management. He has been continued on heparin drip. Plavix has been withheld. Physical Exam Const: COMMON NORMALS: no acute distress and patient oriented x3 Resp: COMMON NORMALS: normal respiratory effort, No retractions, No use of accessory muscles and clear to auscultation bilaterally AUSCULTATION: clear to auscultation bilaterally Cardio: COMMON NORMALS: regular rate, regular rhythm, S1 normal heart sound present and S2 normal heart sound present RATE: regular rate RHYTHM: regular rhythm HEART SOUNDS: S1 normal heart sound present and S2 normal heart sound present GI: COMMON NORMALS: Normal to inspection, nondistended, normoactive bowel sounds present and non-tender Extremity: COMMON NORMALS: no pedal edema Neuro: COMMON NORMALS: patient oriented x3 TS Data Studies Completed and Pending Pending at discharge Category Date Time Status 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 echo complete* [id number] Routine Ultrasound 06/01/24 08:06 Completed Laboratory Last Values WBC 7.46 10^3/uL (3.29-11.43) 06/02/24 01:52 RBC 3.89 10^6/uL (3.85-5.65) 06/02/24 01:52 Hgb 11.90 g/dL (11.27-16.99) 06/02/24 01:52 Hct 35.3 % (37-53) L 06/02/24 01:52 MCV 90.7 fl (82-101) 06/02/24 01:52 MCH 30.6 pg (27-33) 06/02/24 01:52 MCHC 33.7 g/dL (30-55) D 06/02/24 01:52 RDW 13.9 % (12.1-15.1) 06/02/24 01:52 Plt Count 230 10^3/cmm (157-399) 06/02/24 01:52 MPV 10.5 fL (7.4-10.4) H 06/02/24 01:52 Neut % (Auto) 37.6 % 06/02/24 01:52 Lymph % (Auto) 44.1 % 06/02/24 01:52 Swift % (Auto) 10.9 % 06/02/24 01:52 Eos % (Auto) 6.6 % 06/02/24 01:52 Baso % (Auto) 0.7 % 06/02/24 01:52 Neut # (Auto) 2.81 10^3/uL (1.8-7.7) 06/02/24 01:52 Lymph # (Auto) 3.3 10^3/uL (0.8-4.8) 06/02/24 01:52 Swift # (Auto) 0.8 10^3/uL (0.2-0.9) 06/02/24 01:52 Eos # (Auto) 0.5 10^3/uL (0.0-0.8) 06/02/24 01:52 Baso # (Auto) 0.1 10^3/uL (0.0-0.1) 06/02/24 01:52 Nucleated RBC % (auto) 0 % 06/02/24 01:52 Nucleated RBCs # 0.0 /100WBC 06/02/24 01:52 PT 13.70 SECONDS (12.1-14.9) 06/01/24 14:51 INR 0.98 (0.8-1.2) 06/01/24 14:51 APTT 111.9 SECONDS (23.9-36.7) H D 06/02/24 01:52 D-Dimer 0.47 ug/mLFEU (0-0.59) 06/01/24 07:42 Sodium 136 mmol/L (136-145) 06/02/24 01:52 Potassium 4.0 mmol/L (3.5-5.1) 06/02/24 01:52 Chloride 103 mmol/L (98-107) 06/02/24 01:52 Carbon Dioxide 22 mmol/L (22-29) 06/02/24 01:52 Anion Gap 15.0 (5-19) 06/02/24 01:52 BUN 13 mg/dL (8-23) 06/02/24 01:52 Creatinine 0.8 mg/dL (0.7-1.2) 06/02/24 01:52 GFR Calculation 96.1 mL/min (90-130) 06/02/24 01:52 Glucose 88 mg/dL (65-115) 06/02/24 01:52 Calculated Osmolality 282 mOsm/kg (285-295) L 06/02/24 01:52 Calcium 9.3 mg/dL (8.5-10.5) 06/02/24 01:52 Magnesium 2.0 mg/dL (1.7-2.3) 06/02/24 01:52 Troponin T Baseline 10 ng/L (0-15) 06/01/24 08:25 Troponin T 120 Minute 9.12 ng/L (0-15) 06/01/24 10:29 Delta Troponin T -0.88 ABS# (0-10) L 06/01/24 10:29 Troponin T Hi Sens 6Hr 8.75 ng/L (0-15) 06/01/24 14:51 Troponin T Hi Sens 6Hr Delta -1.25 ng/L (0-12) L 06/01/24 14:51 C-Reactive Protein 3.0 mg/L (0.0-4.9) 06/02/24 01:52 Radiology Impressions Chest X-Ray 05/31/24 22:49 IMPRESSION: Mild cardiomegaly with vascular congestion. Echocardiogram: CONCLUSIONS Normal left ventricular size, systolic function and wall thickness, with no regional wall motion abnormalities. Left ventricular ejection fraction is estimated at 60%. Grade I/IV diastolic dysfunction (abnormal relaxation filling pattern), normal to mildly elevated filling pressures. Moderate aortic valve calcification. Mild aortic valve stenosis, mean gradient 7.2 mmHg, MAXIME 1.9 cm squared. [id number] aortic valve regurgitation. There is no pericardial effusion. Right atrial pressure is around 5 mm of mercury. Tari Montanez MD (Electronically Signed) Final Date: 01 June 2024 19:03 Recent Clincial Data Last Vital Signs Temp 97.8 F 05/31/24 22:23 Pulse 53 L 06/02/24 08:30 Resp 0 L 06/02/24 08:30 BP 103/56 06/02/24 08:30 Pulse Ox 93 06/02/24 08:30 O2 Del Method Room Air 06/02/24 10:00 Vital Signs Pulse Resp BP Pulse Ox O2 Del Method 06/02/24 10:00 Room Air 06/02/24 08:30 53 L 0 L 103/56 93 06/02/24 08:00 54 L 13 117/55 93 06/02/24 07:30 57 L 15 120/54 94 06/02/24 07:00 48 L 11 L 128/55 92 06/02/24 06:30 49 L 13 116/50 06/02/24 06:00 49 L 16 115/54 06/02/24 05:34 51 L 17 120/54 96 Room Air 06/02/24 05:34 18 96 06/02/24 05:30 51 L 19 H 124/51 06/02/24 05:00 50 L 16 06/02/24 04:50 58 L 19 H 97 06/02/24 04:45 60 26 H 119/44 94 06/02/24 04:40 52 L 16 119/44 95 06/02/24 04:35 61 15 119/44 95 06/02/24 04:30 52 L 15 121/51 06/02/24 04:25 52 L 13 121/51 94 06/02/24 04:20 53 L 12 121/51 94 06/02/24 04:15 53 L 14 121/51 94 06/02/24 04:10 55 L 15 114/43 93 06/02/24 04:05 56 L 17 114/43 92 06/02/24 04:00 54 L 15 110/47 92 06/02/24 03:55 59 L 15 110/47 94 06/02/24 03:50 52 L 13 110/47 94 06/02/24 03:45 50 L 14 110/47 92 06/02/24 03:40 53 L 12 104/45 94 06/02/24 03:35 51 L 13 104/45 94 06/02/24 03:30 52 L 12 119/47 93 06/02/24 03:25 53 L 13 119/47 94 06/02/24 03:20 53 L 13 119/47 95 06/02/24 03:15 51 L 13 114/41 93 06/02/24 03:10 61 14 114/41 93 06/02/24 03:05 53 L 19 H 114/41 95 06/02/24 03:00 51 L 25 H 119/48 94 06/02/24 03:00 53 L 18 114/41 95 06/02/24 02:55 51 L 13 119/48 95 06/02/24 02:50 49 L 16 119/48 95 06/02/24 02:45 49 L 19 H 119/48 93 06/02/24 02:40 51 L 22 H 101/39 95 06/02/24 02:35 50 L 13 101/39 95 06/02/24 02:30 49 L 15 108/41 92 06/02/24 02:30 50 L 16 128/56 95 06/02/24 02:25 55 L 16 108/41 95 06/02/24 02:20 53 L 17 108/41 96 06/02/24 02:15 59 L 17 139/60 06/02/24 02:10 54 L 18 139/60 97 06/02/24 02:05 63 22 H 139/60 98 06/02/24 02:00 52 L 22 H 123/55 97 06/02/24 02:00 52 L 15 139/60 96 06/02/24 01:55 51 L 15 123/55 97 06/02/24 01:50 51 L 14 123/55 97 06/02/24 01:45 127/58 06/02/24 01:40 127/58 06/02/24 01:35 127/58 06/02/24 01:30 127/58 06/02/24 01:30 52 L 14 117/47 86 L 06/02/24 01:25 54 L 16 121/55 96 06/02/24 01:20 127/58 06/02/24 01:15 127/58 06/02/24 01:10 127/58 06/02/24 01:05 127/58 06/02/24 01:00 127/58 06/02/24 01:00 50 L 10 L 138/66 98 Room Air 06/02/24 00:55 127/58 06/02/24 00:50 127/58 06/02/24 00:45 127/58 06/02/24 00:40 127/58 06/02/24 00:35 127/58 06/02/24 00:33 54 L 16 134/56 96 06/02/24 00:30 127/58 06/02/24 00:20 127/58 06/02/24 00:15 127/58 06/02/24 00:10 58 L 18 127/58 97 06/02/24 00:05 55 L 13 127/58 98 06/02/24 00:00 53 L 14 144/64 96 06/01/24 23:55 53 L 17 144/64 97 06/01/24 23:50 55 L 13 144/64 98 06/01/24 23:45 54 L 17 144/64 96 06/01/24 23:40 53 L 18 144/64 96 06/01/24 23:35 54 L 16 144/64 97 06/01/24 23:30 54 L 17 126/62 06/01/24 23:25 50 L 15 126/62 97 06/01/24 23:20 50 L 17 126/62 99 06/01/24 23:15 65 22 H 126/62 97 Intake & Output/Weight 05/31/24 06/01/24 06/02/24 06/03/24 06:59 06:59 06:59 06:59 Intake Total 0 / 0 342.057 / 342.057 Output Total 2500 / 2500 Balance 0 / 0 -2157.943 / -2157.943 Weight 69.853 kg Vitals Last Vital Signs Temp 97.8 F 05/31/24 22:23 Pulse 53 L 06/02/24 08:30 Resp 0 L 06/02/24 08:30 BP 103/56 06/02/24 08:30 Pulse Ox 93 06/02/24 08:30 O2 Del Method Room Air 06/02/24 10:00 TS Medications Medications Acetaminophen (Acetaminophen 500 Mg Tablet) 500 mg PO Q4H PRN PRN Reason: fever Acetaminophen (Acetaminophen 325 Mg Tablet) 650 mg PO Q6H PRN PRN Reason: MILD PAIN Hydrocodone Bitart/Acetaminophen (Hydrocodone-Acetaminophen 5-325 Mg Tablet) 1 tab PO Q4H PRN PRN Reason: PAIN Al Hydrox/Mg Hydrox/Simethicone (Gbyh-Xrl-Vxvipxrtp-Carrie 30 Ml Udc) 30 ml PO Q15M PRN PRN Reason: INDIGESTION Albuterol/Ipratropium (Ipratropium-Albuterol 3 Ml Neb) 3 ml INHALATION Q6H PRN PRN Reason: SHORTNESS OF BREATH Alprazolam (Alprazolam 0.5 Mg Tablet) 0.25 mg PO TID PRN PRN Reason: ANXIETY Aspirin (Aspirin 81 Mg Ec Tablet) 81 mg PO DAILY [facility] Last Admin: 06/01/24 08:41 Dose: 81 mg Atropine Sulfate (Atropine 1 Mg/Ml Sdv 1 Ml) 0.5 mg IVP PRN PRN PRN Reason: Symptomatic bradycardia Clopidogrel Bisulfate (Clopidogrel 75 Mg Tablet) 75 mg PO DAILY [facility] Last Admin: 06/01/24 08:41 Dose: 75 mg Fenofibrate (Fenofibrate 145 Mg Tablet) 145 mg PO DAILY [facility] Last Admin: 06/01/24 08:40 Dose: 145 mg Fentanyl (Fentanyl 50 Mcg/Ml Inj 2ml) 50 mcg IVP PRN PRN PRN Reason: PAIN Heparin Sodium (Porcine) (Heparin 5,000 Unit/Ml Inj 1 Ml) 0 unit IVP PRN PRN; Protocol PRN Reason: Heparin Weight Based Protocol -Subsequent Bolus Nitroglycerin/Dextrose (Nitroglycerin Drip) 50 mg in 250 mls @ 0 mls/hr IV .Q0M [facility]; Protocol Last Admin: 06/01/24 09:05 Dose: 5 mcg/min, 1.5 mls/hr Heparin Sodium/Sodium Chloride (Heparin Drip) 25,000 unit in 500 mls @ 0 mls/hr IV CONT [facility]; Protocol Last Titration: 06/02/24 02:40 Dose: 15 unit/kg/hr, 20.96 mls/hr Sodium Chloride (Sodium Chloride 0.9%) 1,000 mls @ 50 mls/hr IV .Q20H ONE Stop: 06/02/24 14:40 Sodium Chloride (Sodium Chloride 0.9%) 1,000 mls @ 100 mls/hr IV .Q10H [facility] Lisinopril (Lisinopril 5 Mg Tablet) 5 mg PO DAILY [facility] Last Admin: 06/01/24 08:40 Dose: 5 mg Magnesium Hydroxide (Magnesium Hydroxide 30 Ml Udc) 30 ml PO DAILY PRN PRN Reason: CONSTIPATION Morphine Sulfate (Morphine 4 Mg/Ml Sdv 1 Ml) 2 mg IVP Q4H PRN PRN Reason: SEVERE PAIN Last Admin: 06/02/24 05:34 Dose: 2 mg Naloxone HCl (Naloxone 0.4 Mg/Ml Sdv) 0.1 mg IVP Q2M PRN PRN Reason: RESPIRATORY RATE < 8/MIN Nitroglycerin (Nitroglycerin 0.4 Mg Sublingual Tablet) 0.4 mg SUBLINGUAL Q5M PRN PRN Reason: CHEST PAIN Ondansetron HCl (Ondansetron 2 Mg/Ml Sdv 2 Ml) 4 mg IVP Q6H PRN PRN Reason: NAUSEA AND VOMITING Temazepam (Temazepam 15 Mg Capsule) 15 mg PO BEDTIME PRN PRN Reason: INSOMNIA Discontinued Medications Aspirin (Aspirin 325 Mg Tablet) 325 mg PO ONCE ONE Stop: 06/01/24 18:42 Atorvastatin Calcium (Atorvastatin 40 Mg Tablet) 80 mg PO BEDTIME [facility] Last Admin: 06/02/24 01:00 Dose: Not Given Atorvastatin Calcium (Atorvastatin 40 Mg Tablet) 80 mg PO BEDTIME STA Stop: 06/02/24 00:58 Last Admin: 06/02/24 01:02 Dose: 80 mg Lidocaine HCl 15 ml/ Al Hydrox /Mg Hydrox/Simethicone 30 ml/Sucralfate 1 gm 0 ml PO ONCE ONE Stop: 06/01/24 04:51 Last Admin: 06/01/24 10:36 Dose: Not Given Diphenhydramine HCl (Diphenhydramine 50 Mg Capsule) 50 mg PO ONCE ONE Stop: 06/01/24 18:42 Diphenhydramine HCl (Diphenhydramine 50 Mg/Ml Sdv 1ml) Confirm Administered Dose 50 mg .ROUTE .STK-MED ONE Stop: 06/02/24 09:10 Enoxaparin Sodium (Enoxaparin 40 Mg/0.4 Ml Syringe) 40 mg SUBCUT Q24H [facility] Last Admin: 06/01/24 10:36 Dose: Not Given Fentanyl (Fentanyl 50 Mcg/Ml Inj 2ml) Confirm Administered Dose 100 mcg .ROUTE .STK-MED ONE Stop: 06/02/24 07:37 Heparin Sodium (Porcine) (Heparin 5,000 Unit/Ml Inj 1 Ml) 0 unit IVP ONCE ONE; Protocol Stop: 06/01/24 08:06 Last Admin: 06/01/24 08:46 Dose: 3,500 unit Heparin Sodium (Porcine) (Heparin 5,000 Unit/Ml Inj 1 Ml) Confirm Administered Dose 10,000 unit .ROUTE .ST-MED ONE Stop: 06/02/24 07:37 Heparin Sodium (Porcine) (Heparin 5,000 Unit/Ml Inj 1 Ml) Confirm Administered Dose 5,000 unit .ROUTE .ST-MED ONE Stop: 06/02/24 07:52 Lidocaine HCl (Xylocaine) Confirm Administered Dose 20 mls @ as directed .ROUTE .[facility]-MED ONE Stop: 06/02/24 07:37 Sodium Chloride (Sodium Chloride 0.9%) Confirm Administered Dose 250 mls @ as directed .ROUTE .[facility]-MED ONE Stop: 06/02/24 07:37 Isosorbide Mononitrate (Isosorbide Mononitrate Er 30 Mg Tablet) 30 mg PO BID FAINA Midazolam HCl (Midazolam 1 Mg/Ml Inj 2 Ml) Confirm Administered Dose 2 mg .ROUTE .[facility]-MED ONE Stop: 06/02/24 07:37 Nitroglycerin (Nitroglycerin 5 Mg/Ml Sdv 10 Ml) Confirm Administered Dose 50 mg .ROUTE .[facility]-MED ONE Stop: 06/02/24 07:37 Allergies No Known Allergies Allergy (Verified 04/28/24 14:57) Home Medications aspirin 81 mg tablet,delayed release 81 mg PO DAILY #90 tabs 02/11/24 [Rx Confirmed 06/01/24] clopidogrel 75 mg tablet 75 mg PO DAILY #90 tabs 02/11/24 [Rx Confirmed 06/01/24] fenofibrate nanocrystallized 145 mg tablet 145 mg PO DAILY #90 tabs 02/11/24 [Rx Confirmed 06/01/24] lisinopril 5 mg tablet 5 mg PO DAILY #90 tabs 02/11/24 [Rx Confirmed 06/01/24] nitroglycerin 0.4 mg sublingual tablet 0.4 mg sublingual Q5M PRN chest pain #25 tabs 02/26/24 [Rx Confirmed 06/01/24] isosorbide mononitrate 30 mg tablet,extended release 24 hr 30 mg PO BID #180 tabs 04/14/24 [Rx Confirmed 06/01/24] albuterol sulfate 90 mcg/actuation breath activated powder inhaler 2 inh inhalation Q6H PRN shortness of breath or wheezing #1 ea 04/28/24 [Rx Confirmed 06/01/24] atorvastatin 80 mg tablet 80 mg PO QPM 06/01/24 [History Confirmed 06/01/24] Discharge Plan Discharge Patient Disposition: Home Condition: Stable Prescriptions: No Action albuterol sulfate 90 mcg/actuation aerosol powdr breath activated 2 inh inhalation Q6H PRN (Reason: shortness of breath or wheezing) Qty: 1 3RF nitroglycerin 0.4 mg tablet, sublingual 0.4 mg sublingual Q5M PRN (Reason: chest pain) Qty: 25 1RF Rx Instructions: do not exceed 3 doses per episode isosorbide mononitrate 30 mg tablet extended release 24 hr 30 mg PO BID Qty: 180 2RF clopidogrel 75 mg Tablet 75 mg PO DAILY Qty: 90 4RF aspirin 81 mg Tablet,Delayed Release (Dr/Ec) 81 mg PO DAILY Qty: 90 4RF lisinopril 5 mg Tablet 5 mg PO DAILY Qty: 90 3RF fenofibrate nanocrystallized 145 mg Tablet 145 mg PO DAILY Qty: 90 4RF atorvastatin 80 mg tablet 80 mg PO QPM Discharge Orders: Transfer Out of Facility (Order); Ordered 06/02/24 Ordered By: Jimmy Mckeon Referrals: Hui Jolly DO [Primary Care Provider] - Patient Instructions: Opioid Safety Transfer Attestations Time Spent in Transfer Care: greater than 30 min Quality Metrics Clinical Quality Measures [ No reported AMI, CVA or VTE this stay] Coding Level of Care Code Acute Code for Chg Fwd Diagnoses Precordial pain R07.2 Chest pain type: precordial pain Multi-vessel coronary artery stenosis I25.10 Pure hypertriglyceridemia E78.1 Hyperlipidemia type: pure hypertriglyceridemia Primary hypertension I10 Hypertension type: primary hypertension Abnormal stress test R94.39
--- NOTE | 2024-06-02 11:47 | PC.NURSE ---
received patient from quality assurance qa lab analyst at 11:15 sites assessed Clean dry and intact Benadryl given in CCL non admin on MAR
[2024-06-02 11:56] LABS: Estmated Average Glucose 108; Hemoglobin A1C 5.4 % (4.0-6.0)
[2024-06-02 12:02] LABS: Chol HDL Ratio 5.13 mg/dL (1.0-5.00); Cholesterol 205 mg/dL (0-200); HDL Cholesterol 40 mg/dL (60-100); Iron 111 ug/dL (59-158); LDL Cholesterol Calculated 151 mg/dL (50-129); Percent Saturation 36.5 % (20-50); Thyroid Stimulating Hormone 1.22 uIU/mL (0.27-4.20); Total Iron Binding Capacity 304 mcg/dl; Triglycerides 70 mg/dL (0-150); Unsaturated Iron Binding 193 ug/dL (112-347); VLDL Cholestrol Calculation 14 mg/dL (0-30); Vitamin B12 277 pg/mL (232-1245)
[2024-06-02] MEDS: fenofibrate 145 mg Tablet PO (13:41)
[2024-06-02] MEDS: aspirin 81 mg EC Tablet PO (13:42)
--- NOTE | 2024-06-02 16:05 | PC.NURSE ---
spoke with provider about patients morning medications instruction to hold lisinopril and give nitro gtt for chest pain or high bp and give 81 mg aspirin not the 325
[2024-06-02] MEDS: heparin drip 25,000 UNIT/500 ML PREMIX 20 UNIT IV (17:45)
[2024-06-02] MEDS: atorvastatin 40 mg Tablet PO (17:45)
--- NOTE | 2024-06-02 21:37 | PC.NURSE ---
chest pain pt started to exert himself. he said, he was trying to straighten out his blankets and develop sharp pain on chest. rated 9/10 per pain scale. PRN morphine as ordered given, pt stated after resting, chest pain came down to 6/10 per pain scale. nitro drip started back on per protocol.
[2024-06-02 23:03] LABS: Partial Thromboplastin Time 71.8 SECONDS (23.9-36.7)
[2024-06-03] VITALS (7 sets, daily range): BP systolic 101–124; BP diastolic 46–59; PULSE 46–57; RESP 12–18; TEMP 36.6–36.8; O2SAT 93–97
--- NOTE | 2024-06-03 01:35 | PC.NURSE ---
nitroglycerin turned down to 5 due to blood pressure being 111/55 and patient resting comfortably in bed.
[2024-06-03 04:06] LABS: Basophils % 0.3 %; Eosinophils # 0.6 10^3/uL (0.0-0.8); Eosinophils % 7.9 %; Hematocrit 35.8 % (37-53); Lymphocytes # 2.3 10^3/uL (0.8-4.8); Lymphocytes % 29.9 %; Mean Corpuscular HGB Conc 33.2 g/dL (30-55); Mean Corpuscular Hemoglobin 30.4 pg (27-33); Mean Corpuscular Volume 91.6 fl (82-101); Mean Platelet Volume 10.8 fL (7.4-10.4); Monocytes # 0.8 10^3/uL (0.2-0.9); Monocytes % 9.8 %; Neutrophils # 4.02 10^3/uL (1.8-7.7); Nucleated Red Blood Cells % 0 %; Platelet Count 214 10^3/cmm (157-399); Red Blood Count 3.91 10^6/uL (3.85-5.65); Red Cell Distribution Width 13.9 % (12.1-15.1); White Blood Count 7.73 10^3/uL (3.29-11.43)
[2024-06-03 04:32] LABS: Blood Urea Nitrogen 15 mg/dL (8-23); Calcium 8.7 mg/dL (8.5-10.5); Carbon Dioxide 22 mmol/L (22-29); Chloride 102 mmol/L (98-107); Creatinine Clr Calc Pharmacy 82.7765; Glomerular Filtration Rate 96.1 mL/min (90-130); Glucose 92 mg/dL (65-115); Osmolality Calculated 276 mOsm/kg (285-295); Sodium 133 mmol/L (136-145)
[2024-06-03 04:37] LABS: Anion Gap 13.2 (5-19); Potassium 4.2 mmol/L (3.5-5.1)
[2024-06-03 04:39] LABS: Partial Thromboplastin Time > 250.0 SECONDS (23.9-36.7)
[2024-06-03 04:46] LABS: Folate Level 9.6 ng/mL (4.5-32.2)
--- NOTE | 2024-06-03 04:48 | PC.NURSE ---
per Lydia Huggins RN, Dr. Davenport no longer wants the NS going. NS order non adminned in mar
[2024-06-03] MEDS: fenofibrate 145 mg Tablet PO (07:07)
[2024-06-03] MEDS: aspirin 81 mg EC Tablet PO (07:07)
[2024-06-03] MEDS: lisinopril 5 mg Tablet PO (07:07)
[2024-06-03] MEDS: HYDROcodone-acetaminophen 5-325 mg Tablet 1 TAB PO (09:44)
--- NOTE | 2024-06-03 09:46 | PC.CHAP ---
Pastoral Care Encounter/Spiritual Assessment Type of Contact [x] Declined vending route driver visit [] Patient/Family/Request visit [] Outpatient visit [] Follow-up visit [] Physician referral [] Code/Alert [] Routine visit [] Staff referral [] Actively dying [] Patient sleeping [] Family support [] [] Out of room [] Palliative care [] [] Receiving care in room [] Pre-surgical visit [] Trauma [] Long length of stay [] ICU visit [] Other: Relational/Emotional Strength [] Patient feels connected with others/family/visitors/staff [] Distress [] Loneliness/isolation [] Abandonment Spirituality of Patient [] Person of Mercedes [] Attends Confucianist of their Mercedes [] Believes in Prayer [] Reads Bible or Jehovah'S Witness materials [] There are Spiritual issues to be addressed Aoc Director Intelligence Officer Interventions [] Prayer [] Active listening [] Non-anxious presence [] Spiritual/emotional support [] Crisis/trauma care [] Spiritual counseling [] Bereavement support [] Provided bereavement packet [] Provided Bible/devotional materials [] Provided toy/stuffed animal, coloring book to patient or family member [] Provided Communion [] Anointing/Novi [] Salvation [] Completed spiritual assessment [] Other: Impact on Illness or Injury [] Angry [] Fearful [] Anxious [] Often cries [] Exhaustion [] Unable to work [] Unable to attend methodist [] Unable to walk/stand [] Unable to read [] Unable to drive [] Unable to eat/drink [] Unable to sleep [] Unable to be with family [] Patient intubated [] Other: Summary Time spent with patient
--- NOTE | 2024-06-03 10:11 | ECG_ITS ---
[facility]: [facility]24[facility] Pat Name: Kiersten Sibley Department: Room: 108 Gender: Male Supervisor Delivery Department: : [id number] Requested By: Jade Antonio Order Number: [id number] Slick MD: Tan Jimenez M.D. Measurements Intervals [place] Rate: 53 P: 64 [place]: 164 QRS: 57 QRSD: 87 T: 29 QT: 389 QTc: 367 Interpretive Statements SINUS BRADYCARDIA MODERATE ST DEPRESSION [0.05+ mV ST DEPRESSION] Compared to ECG 06/02/2024 05:27:32 No significant changes Electronically Signed On 06-04-2024 17:53:31 SEAM FELLER by Tan Jimenez M.D. [email or web address]
[2024-06-03 10:49] LABS: Partial Thromboplastin Time 34.2 SECONDS (23.9-36.7)
--- NOTE | 2024-06-03 12:35 | PC.NURSE ---
Patient transfer to [facility]. Report called to Brook Bautista RN. Patient left with heparin drip in place per cardiology. Patient verbalized understanding for transfer. Dr Davenport spoke with patient's son Samir prior to transfer. Patient taken by Ronald Sterling.
--- NOTE | 2024-06-03 13:15 | P.PN_ITS ---
<Statement entered by Tari Davenport MD - 06/03/24 20:27> Patient was evaluated and cared for in conjunction with an advanced practice practitioner. I personally examined the patient and reviewed the chart and all pertinent data including imaging, telemetry, and laboratory results. I discussed the patient in detail with the advanced practice practitioner. Please see their note for complete H&P testing result and agreed upon plan of care for the patient. Patient had mild chest pain last night and this morning GENERAL: Patient is alert, awake and oriented x3. HEART: Regular S1 and S2. No murmur, rub or gallop. LUNGS: Clear to auscultate bilaterally. CENTRAL NERVOUS SYSTEM: Grossly nonfocal. EXTREMITIES: Lower extremities with out edema bilaterally. Assessment and plan Coronary artery disease with triple-vessel disease Hypertension Non-STEMI Chest pain Continue aspirin statin patient is not on beta-meli due to bradycardia Nitropaste Morphine for the chest pain Twelve-lead EKG did not show any significant ischemic changes Awaiting bed at [facility] for CT surgery transfer Subjective 2 Subjective: Patient had an episode of chest pain yesterday that was relieved with morphine. He had some chest pain 4 out of 10 this morning. He was given hydrocodone with relief. EKG showed no acute changes. He is stable at this time. Heparin drip is going. Vitals/I&O/Wt Last Vital Signs Temp 97.8 F 06/03/24 12:00 Pulse 51 L 06/03/24 12:00 Resp 15 06/03/24 12:00 BP 102/46 06/03/24 12:00 Pulse Ox 97 06/03/24 12:00 O2 Del Method Room Air 06/03/24 12:00 06/02/24 06/03/24 06/03/24 22:59 06:59 14:59 Intake Total 615.025 / 1012.968 231.45 / 1244.418 360 / 360 Output Total 500 / 500 800 / 1300 250 / 250 Balance 115.025 / 512.968 -568.55 / -55.582 110 / 110 Weight last 48 hrs Weight 154 lb Weight 154 lb Physical Exam 2 Narrative: General: No apparent distress, healthy appearing, well nourished HENMT: normoceophalic Muskuloskeletal: Full ROM Lymphatic: no lymphedema noted Respiratory: Normal respiratory effort, clear to auscultation bilaterally throughout all lung perez, no use of accessory muscles Cardio: No JVD, regular rate, regular rhythm, S1 S2 normal, no murmurs, peripheral pulses 2+ radial palpated bilaterally GI: Normal to inspection, nondistended Extremities: Full ROM, normal, normal capillary refill, no cyanosis or edema Neuro: Alert and oriented x4, no focal motor deficits Psych: Affect normal, denies suicidal ideation, mental status grossly normal Skin: No rashes or lesions noted, no wounds Data 06/03/24 03:50 06/03/24 03:50 A&P Assessment and plan (1) Chest pain: Qualifiers: Chest pain type: precordial pain Qualified Code(s): R07.2 - Precordial pain (2) Multi-vessel coronary artery stenosis: (3) Hyperlipidemia: Qualifiers: Hyperlipidemia type: pure hypertriglyceridemia Qualified Code(s): E78.1 - Pure hyperglyceridemia (4) HTN (hypertension): Qualifiers: Hypertension type: primary hypertension Qualified Code(s): I10 - Essential (primary) hypertension (5) Abnormal stress test: Plan Nitro has been held due to hypotension. Patient currently on heparin drip. Will monitor for episodes of chest pain/EKG changes. Patient has been accepted at [facility] by CT surgery awaiting bed. Continue aspirin statin Continue heparin once complete bedrest after 5-hour of discontinuing the right common femoral artery sheath. Patient has been accepted at [facility] under Dr. Prescott, awaiting bed opening most likely will happen by tomorrow Continue aspirin. Holding Plavix at this time due to patient going to surgery. BB being held due to bradycardia. PDMP PDMP Reviewed: Not Reviewed Attestations 2 Medical Necessity Statement*: Patient waiting transfer to [facility]. Coding Level of Care Code Acute Code for Chg Fwd Diagnoses Precordial pain R07.2 Chest pain type: precordial pain Multi-vessel coronary artery stenosis I25.10 Pure hypertriglyceridemia E78.1 Hyperlipidemia type: pure hypertriglyceridemia Primary hypertension I10 Hypertension type: primary hypertension Abnormal stress test R94.39
== END 2024-06-03 12:30 | disposition short-term general hospital (02) ==
LOC: ER 06-01 05:29 → ER IP 06-01 05:36 → CSU 06-02 06:31
PROVIDERS: Family Medicine; Internal Medicine Cardiovascular Disease; Admitting Provider Internal Medicine; Emergency Provider Emergency Medicine; PCP Family Medicine; Visit Provider Student in an Organized Health Care Education/Training Program
DX: I21.4 Non-ST elevation (NSTEMI) myocardial infarction (principal); I25.110 Atherosclerotic heart disease of native coronary artery with unstable angina pectoris; Z95.5 Presence of coronary angioplasty implant and graft; Z79.82 Long term (current) use of aspirin; Z79.899 Other long term (current) drug therapy; I10 Essential (primary) hypertension; E78.5 Hyperlipidemia, unspecified; F41.1 Generalized anxiety disorder; F17.210 Nicotine dependence, cigarettes, uncomplicated; E78.1 Pure hyperglyceridemia; I95.9 Hypotension, unspecified; R00.1 Bradycardia, unspecified
CPT/HCPCS: 36415; 71045; 80048; 80061; 82607; 82746; 83036; 83540; 83550; 83735; 84443; 84484; 85025; 85378; 85610; 85730; 86140; 93005; 93306; 96365; 96375; 96376; 99291; G0378; J1200; J1644; J2250; J2270; J3010; J3490; J7050